=== PATIENT | female | born 1940 | race Caucasian/White ===

== ENCOUNTER 2016-08-17 08:09 | Outpatient (CLI) | payer MEDICARE, BC ==
[~2016-08-17] VITALS: Ht 157.5 cm; Wt 65.0 kg
--- NOTE | ~2016-08-17 | HEMODYNAMI ---
PATIENT:RICHARD NGO MEDICAL RECORD: [id number] : 38 LOCATION:[facility] ADMISSION DATE: 08/17/16 Generatedon:08/17/201612:28 Patient name: RICHARD NGO Patient #: [id number] SSN: : 1940 Date of study: 08/17/2016 Page: Of Hemodynamic Procedure Report Patient Data Patient Demographics Procedure consent was obtained First Name: RICHARD Gender: Female Last Name: HUBER : 1940 Middle Initial: M Age: 75 year(s) Patient #: [id number] Race: Additional ID: [id number] Contact details Address: [address] [place] [address] State: [place] City: [place] Zip code: [address] Past Medical History Performed procedures and imaging results Date Procedure Procedure Results Comments 08/17/2016 No ACC stress or imaging studies were performed Allergies: No known allergies Admission Admission Data Admission Date: 08/17/2016 Admission Time: 8:09 Admit Source: Other Insurance Payor: Medicare, Private health insurance Height (in.): 62 BSA: 1.66 (m2) Height (cm.): 157.48 BMI: 26.15 (kg/m2) Weight (lbs.): 143 Weight (kg.): 64.86 Medications upon Admission Medications Dosage Times Administered Last Remarks per Delivery Day Date and Time Aspirin Yes 08/17/2016 (any) 0:00 Clopidogrel Contraindicated 08/17/2016 0:00 Lab Results Lab Result Date: 08/17/2016 Lab Result Time: 0:00 Biochemistry Name Units Result Min Max Creatinine mg/dl 1 --(--*-)-- 0.6 1.3 CBC Name Units Result Min Max Hemoglobin g/dl 13.6 --(*---)-- 13.5 17.5 Procedure Procedure Types Cath Procedure Diagnostic Procedure LHC LHC w/Coronaries Procedure Description Procedure Date Procedure Date: 08/17/2016 Procedure Start Time: 12:19 Procedure End Time: 12:27 Procedure Staff Name Function Albert Batista MD Performing Physician Yeimi Mullins RT Scrub Heidi Mir RN Nurse Tu Myers RT Monitor Procedure Data Cath Procedure Fluoroscopy Diagnostic fluoroscopy Total fluoroscopy Time: 0.9 time: 0.9 min min Diagnostic fluoroscopy Total fluoroscopy dose: 220 dose: 220 mGy mGy Contrast Material Contrast Material Type Amount (ml) Isovue 300 55 Entry Location Entry Primary Successful Side Size Upsize Upsize Entry Closure Succes sful Closure Location (Fr) 1 (Fr) 2 (Fr) Remarks Device Remarks Femoral Right 5 Fr Vascade artery Closure System Estimated blood loss: 5 ml Diagnostic catheters Device Type Used For End Catheter Placement Cordis 5Fr Pigtail Procedure Catheter (MP) Cordis 5Fr JL 4.0 Procedure Catheter (MP) Cordis 5Fr 3DRC Catheter Procedure (MP) Procedure Complications No complications Procedure Medications Medication Administration Route Dosage Oxygen NC 2 l/min Benadryl I.V. 50 mg Lidocaine 2% added to field 20 Heparin Flush Bag added to field 2 bags (1000units/500ml NS) 0.9% NaCl I.V. 100 ml/hr Versed I.V. 1 mg Fentanyl I.V. 50 mcg Versed I.V. 1 mg Fentanyl I.V. 50 mcg Hemodynamics Rest BSA: 1.66 (m2) HGB: 13.6 (g/dl) O2 Consumption: Estimated: 155.73 (ml/min) O2 Co nsumption indexed: Estimated:93.81 (ml/min/m) Heart Rate: 78 (bpm) Snapshots Pre Cath Intra NCS Post Cath Vital Signs Time Heart Resp SPO2 etCO2 [id number] NIBP (mmHg) Rhythm Pain Sedation Rate (ipm) (%) (mmHg) (mmHg) Status Level (bpm) 12:10:23 79 21 98 0 0 155/90(125) NSR 0 (11) 10(A) , No pain 12:14:39 72 17 98 0 0 149/90(130) NSR 0 (11) 10(A) , No pain 12:18:51 71 16 95 0 0 125/83(120) NSR 0 (11) 9(A) , No pain 12:22:57 71 18 95 0 0 132/84(110) NSR 0 (11) 9(A) , No pain 12:27:05 75 17 95 0 0 133/87(102) NSR 0 (11) 10(A) , No pain Medications Time Medication Route Dose Verified Delivered Reason Notes Effe ctiveness by by 12:13:37 Oxygen NC 2 Albert Buffie used for l/min Lester Mir RN procedure 12:13:45 Benadryl I.V. 50 mg Albert Buffie used for Lester Mir RN procedure 12:13:54 Lidocaine 2% added 20ml Albert Ablert for local to vial Lester Batista MD anesthetic field 12:14:02 Heparin Flush added 2 Albert Albert used for Bag to bags Lester Batista MD procedure (1000units/500ml field NS) 12:14:11 0.9% NaCl I.V. 100 Albert Buffie Per ml/hr Lester Mir RN physician 12:17:00 Versed I.V. 1 mg Albert Buffie for Lester Mir RN sedation 12:17:14 Fentanyl I.V. 50 Albert Buffie for mcg Lester Mir RN sedation 12:22:20 Versed I.V. 1 mg [place] for Lester Mir RN sedation 12:22:23 Fentanyl I.V. 50 Albert Buffie for mcg Lester Mir RN sedation Procedure Log Time Note 11:43:44 Diagnostic Cath Status : Elective 11:44:29 ACC Patient presents with Unstable Angina CCS Anginal Class 3--Marked limitation of physical activity, angina occurs with ordinary activity.. 11:44:32 Time tracking: Regular hours 11:44:37 Plan of Care:Hemodynamics will remain stable., Cardiac rhythm will remain stable., Comfort level will be maintained., Respiratory function will remain adequate., Patient/ family verbilizes understanding of procedure., Procedure tolerated without complication., Recovers from procedure without complications.. 11:44:40 Heidi Mir RN sent for patient. Start room use. 11:45:56 Patient Height : 62 cm 11:45:59 Patient Weight : 143 kg 11:46:22 Admit Source: Other 11:46:27 Insurance Payor : Private health insurance, Medicare 11:48:18 Patient allergic to No known allergies 11:48:53 Lab Result : Hemoglobin 13.6 g/dl 11:48:53 Lab Result : Creatinine 1 mg/dl 11:49:15 ACCPatient has been prescribed/administered the following anti-anginal medication within the last 2 weeks: None 12:05:15 Patient received from Outpatients to CCL 3 Alert and oriented. Tansferred to table in Supine position. 12:05:17 Warm blankets applied, and katarina hugger turned on for patient comfort. 12:05:17 Correct patient and procedure confirmed by team. 12:05:18 Signed procedure consent form obtained from patient. 12:05:19 ECG and BP/O2 sat monitors applied to patient. 12:06:46 H&P Date Dictated: 08/10/2016 Within 30 days and on chart., H&P Addendum completed by physician on day of procedure. (MUST COMPLETE FOR ALL OUTPATIENTS). 12:06:47 Pre-procedure instructions explained to patient. 12:06:48 Pre-op teaching completed and patient verbalized understanding. 12:06:52 Family in waiting room. 12:06:53 Patient NPO since Midnight. 12:06:56 Is the patient allergic to Iodine/contrast media? No. 12:06:58 Is patient on blood thinner?Yes 12:07:01 ACC The patient was administered the following blood thiners within the last 24 hours: ACCPlavix 12:07:04 Patient diabetic? No. 12:07:09 Previous problem with sedation/anesthesia? No ? 12:07:11 Snore? Yes 12:07:12 Sleep apnea? No 12:07:13 Deviated septum? No 12:07:13 Opens mouth fully? Yes 12:07:15 Sticks out tongue? Yes 12:07:19 Airway obstruction? Yes COPD 12:07:27 Dentures? Yes in tight 12:09:18 Vital chart was started 12:13:37 Oxygen 2 l/min NC was given by Heidi Mir RN; used for procedure; 12:13:45 Benadryl 50 mg I.V. was given by Heidi Mir RN; used for procedure; 12:13:54 Lidocaine 2% 20ml vial added to field was given by Albert Batista MD; for local anesthetic; 12:14:02 Heparin Flush Bag (1000units/500ml NS) 2 bags added to field was given by Albert Batista MD; used for procedure; 12:14:07 Baseline sample Acquired. 12:14:11 0.9% NaCl 100 ml/hr I.V. was given by Heidi Mir RN; Per physician; 12:14:12 Rhythm: sinus rhythm 12:14:18 Pre procedure: right dorsailis pedis pulse 1+ Palpable, but thready & weak; easily obliterated 12:14:20 Patient pain scale 0/10 ?. 12:14:44 IV patent on arrival in left forearm with 0.9% NaCl at [facility]. 12:14:49 Lab results completed and on chart. 12:14:53 Right groin area was prepped with chlora-prep and draped in sterile fashion 12:14:54 Alarms reviewed by R. N. 12:14:54 Sharps counted by scrub and verified by R.N. 12:15:03 Use device set Femoral Dx 12:15:04 Tegaderm 4 x 4 opened to sterile field. 12:15:05 Acist Manifold opened to sterile field. 12:15:06 Acist Hand Control opened to sterile field. 12:15:07 Acist Syringe opened to sterile field. 12:15:07 Bag Decanter opened to sterile field. 12:15:08 Cardinal Cath Pack opened to sterile field. 12:15:08 Terumo 5Fr [place] Sheath opened to sterile field. 12:15:09 St Miguel 260cm J .035 wire opened to sterile field. 12:15:09 Cordis Infinity 5Fr Multipack catheter opened to sterile field. 12:15:16 Physician arrived 12:15:16 --------ALL STOP TIME OUT------ 12:15:17 Final Timeout: patient, procedure, and site verified with staff and physician. All members of the team are in agreement. 12:15:18 Right groin site verified by team. 12:15:22 Physical assessment completed. ASA score P 2 - A patient with mild systemic disease as per Albert Batista MD. 12:15:27 Sedation plan: IV Moderate Sedation Versed, Fentanyl 12:17:00 Versed 1 mg I.V. was given by Heidi Mir RN; for sedation; 12:17:14 Fentanyl 50 mcg I.V. was given by Heidi Mir RN; for sedation; 12:19:22 Procedure started. 12:: Full Disclosure recording started 12::27 Local anesthetic to right femoral artery with Lidocaine 2% by Albert Batista MD.INITIAL ACCESS ONLY 12:19:59 Zero performed for pressure channel P1 12:20:02 Zero performed for pressure channel P1 12:20:13 Zero performed for pressure channel P1 12:21:12 A 5 Fr sheath was inserted into the Right Femoral artery 12::33 A Cordis 5Fr Pigtail Catheter (MP) was advanced over the wire and used for Procedure. 12::36 LV gram done using MUSA 12:: Injector settings: Ml/sec: 10, Volume: 20, 12::58 EF : 60 % 12::59 Catheter exchanged over wire. 12:22:04 A Cordis 5Fr JL 4.0 Catheter (MP) was advanced over the wire and used for Procedure. 12:22:20 Versed 1 mg I.V. was given by Heidi Mir RN; for sedation; 12:22:23 Fentanyl 50 mcg I.V. was given by Heidi Mir RN; for sedation; 12::42 LCA angiography performed. 12:24:12 Catheter exchanged over wire. 12:24:17 A Cordis 5Fr 3DRC Catheter (MP) was advanced over the wire and used for Procedure. 12:24:30 RCA angiography performed. 12::38 Vascade 5Fr Closure Device opened to sterile field. 12::42 Catheter removed. 12:24:50 Sheath removed intact; hemostasis achieved with Vascade Closure System to the Right Femoral artery. 12:24:52 Procedure ended.(Physican Out) 12:26:15 Fluoroscopy time 00.90 minutes. 12::18 Fluoroscopy dose: 220 mGy 12::18 Flurop Dose total: 220 12::21 Contrast amount:Isovue 300 55ml. 12:26:23 Sharps counted by scrub and verified by R.N. 12:26:24 Insertion/operative site no bleeding no hematoma. 12:26:28 Post-op/insertion site Right Femoral artery dressed using a 4 x 4 and Tegaderm. 12:26:32 Post right femoral artery:stable, soft, clean and dry 12::33 Post Procedure Pulses reassessed and unchanged 12::36 Post-procedure physical assessment completed. ASA score P 2 - A patient with mild systemic disease as per Albert Batista MD. 12:26:43 Post procedure rhythm: unchanged. 12:26:46 Estimated blood loss: 5 ml 12:26:47 Post procedure instruction explained to patient.Patient verbalizes understanding. 12:26:48 Patient needs reinforcement of post procedure teaching. 12:27:05 Procedure and supply charges have been captured, reviewed, submitted and are correct. 12:27:08 Procedure Complication : No complications 12:27:10 Vital chart was stopped 12:27:11 See physician's report for complete and final results. 12:27:13 Report given to Post Procedure Room. 12:27:16 Patient transfered to Post Procedure Room with Stretcher. 12:27:22 Procedure ended. 12:27:22 Full Disclosure recording stopped 12:27:27 End room use (Document Last) Device Usage Item Name Manufacture Quantity Catalog Number Hospital Part Current Minimal Lot# / Charge Number Stock Stock Serial# Code Tegaderm 1 [id number] 5 4 x 4 Acist Acist 1 53561 460834 722963 101824 5 Manifold Medical Systems Inc Acist Acist 1 01348 456007 009532 718252 5 Hand Medical Control Systems Inc Acist Acist 1 43255 556897 029939 507029 20 Syringe Medical Systems Inc Bag Microtek 1 2002S 381086 46898 271437 5 Decanter Medical Inc. Cardinal Cardinal 1 [id number] 678823 95366 981646 5 Cath Pack Health Terumo Terumo 1 [id number] 310426 291980 [id number] [address] [place] [address] [facility] Miguel 1 [id number] 056753 349632 [id number] 30 260cm J .035 wire Cordis Cardinal 1 [id number] 015254 08326 552137 30 Health Data Vision Health 5Fr Multipack catheter Cordis Cardinal 1 [id number] 5 5Fr Health Pigtail Catheter (MP) Cordis Cardinal 1 [id number] 5 5Fr JL Health 4.0 Catheter (MP) Cordis Cardinal 1 [id number] 5 5Fr [facility] Health Catheter (MP) Vascade Cardiva 1 [id number] 79974 758240 10 5Fr Medical, Closure Inc. Device Signature Audit [place] Stage Time Signature Unsigned Intra-Procedure 08/17/2016 Tu Myers 12:28:50 PM RT(R) Signatures Monitor : Tu Myers RT Signature : Date : Time : [place] [id number] [place] [address]
[~2016-08-17 08:09] MED LIST: ASPIRIN EC81 MG PO; LEVOTHROID75 MCG PO; LISINOPRIL10 MG PO; NEURONTIN 100100 MG; PLAVIX75 MG PO; PRAVACHOL10 MG PO; SINGULAIR10 MG PO; ZOLOFT50 MG PO
[2016-08-17 08:46] LABS: BASOPHILS 0.1 % (0.0-2.0); EOSINOPHILS 3.4 % (0-7); HEMATOCRIT 41.9 % (36.0-48.0); HEMOGLOBIN 13.6 g/dL (12-16); IMMATURE GRANULOCYTES 0.4 % (0-5); LYMPHOCYTES 22.9 % (15-50); MCH 27.5 pg (26.0-34.0); MCHC 32.5 g/dL (31.0-37.0); MCV 84.8 fL (80.0-100.0); MONOCYTES 5.6 % (2-11); NEUTROPHILS 67.6 % (40-80); PLATELET COUNT 254 10x3/uL (130-400); RBC 4.94 10x6/uL (4.00-5.40); WBC 7.2 10x3/uL (4.8-10.8)
[2016-08-17 08:54] LABS: ANION GAP 12.4 mmol/L (8-16); CALCIUM 9.6 mg/dL (8.5-10.1); CARBON DIOXIDE 28.9 mmol/L (21.0-32.0); POTASSIUM - SERUM 4.3 mmol/L (3.5-5.1)
[2016-08-17 09:11] VITALS: BP 117/71; Ht 157.5 cm; Wt 65.0 kg
--- NOTE | 2016-08-17 12:59 | NUR ---
SLEEPING QUIETLY WITH NO DISTRESS NOTED VSS AT HR 69 BP 122/72 NO C/O OF CHEST PAIN 5 FR VASCADE R/GROIN CDI NO BLEEDING NO HEMATOMA NOTED FAMILY AT SIDE
--- NOTE | 2016-08-17 13:34 | NUR ---
CONTINUES TO SLEEP WITH NO DISTRESS NOTED 5 FR VASCADE R/GROIN CDI NO BLEEDING NO HEMATOMA NOTED FAMILY AT SIDE
--- NOTE | 2016-08-17 14:03 | NUR ---
NO C/O OF CHEST PAIN VSS WITH 5 FR VASCADE R/GROIN CDI WILL MONITOR
--- NOTE | 2016-08-17 14:21 | NUR ---
REPOSITIONED TO SITTING WITH HOB UP 45 DEGREES SANDWICH AND SODA TO BEDSIDE CHEST PAIN IS DENIED. 5 DR BLOOM R/GROIN CDI NO BLEEDING NO HEMATOMA NOTED WILL MONITOR
--- NOTE | 2016-08-17 14:33 | NUR ---
PIV REMOVED FROM LEFT ARM WITH DRESSING APPLIED. PATIENT DENIED CHEST PAIN WITH 5 FR VASCADE R/GROIN CDI NO BLEEDING NO HEMATOMA NOTED UP TO GET DRESSED FOR DISCHARGE HOME 1445 DISCHARGE INSTRUCTIONS GONE OVER WITH PATIENT AND DAUGHTER BOTH VERBALIZE UNDERSTANDING. LEFT VIA WC TO [facility]BRYANTIAN FOR DAUGHTER TO DRIVE HOME
--- NOTE | 2016-08-20 16:40 | OP ---
PATIENT NAME: RICHARD NGO MEDICAL RECORD: [id number] :38 LOCATION:[facility] ADMISSION DATE: SURGEON: SULEIMAN CRUZ MD DATE OF OPERATION: 08/17/2016 PROCEDURES: 1. Left heart catheterization. 2. Selective coronary angiography. 3. Left ventriculogram. PROCEDURE IN DETAIL: After informed consent was obtained and after detailed explanation of risks, benefits as well as alternative therapies, the patient elected to proceed with angiogram and heart catheterization. The right femoral area was prepped and draped in normal sterile fashion. The right femoral artery was cannulated via modified Seldinger technique with placement of 5-[place] sheath. All catheters exchanged through this sheath. FINDINGS: Left ventriculogram was performed in standard 30-degree MUSA view, reveals good cardiac wall motion throughout all segments. Overall ejection fraction estimated 60%. SELECTIVE CORONARY ANGIOGRAPHY: 1. Left main showed no significant angiographic disease. 2. Left anterior descending has previously placed stents in the LAD and diagonal. These are widely patent with no significant restenosis. No disease elsewise throughout the LAD and its branches. 3. Left circumflex shows moderate irregularities, but no flow-limiting stenosis. 4. Right coronary artery has moderate irregularities, but no flow-limiting stenosis. OVERALL IMPRESSION: 1. No significant restenosis of the previously placed stents. 2. No disease elsewise. 3. Normal left ventricular function. Symptomatology is noncardiac at this point. TRANSINT:[id number] Voice Confirmation ID: [id number] DOCUMENT ID: [id number] SULEIMAN CRUZ MD at 1640 CC: [id number] DICTATION DATE: 08/17/16 1229 MEDICAL CARE EVALUATION SPECIALIST: 08/17/16 1249 DEP CLI 08/17/16 [place] [id number]
== END 2016-08-17 14:49 | disposition home or self-care (01) ==
LOC: D.CATH 08:09
PROVIDERS: Internal Medicine Interventional Cardiology
DX: I25.119 Atherosclerotic heart disease of native coronary artery with unspecified angina pectoris (principal); R06.02 Shortness of breath; I10 Essential (primary) hypertension; J44.9 Chronic obstructive pulmonary disease, unspecified

== ENCOUNTER 2018-09-07 13:40 | Inpatient (IN) | payer MEDICARE, BC ==
[~2018-09-07] VITALS: Ht 157.5 cm; Wt 64.9 kg
--- NOTE | ~2018-09-07 | HEMODYNAMI ---
PATIENT:RICHARD NGO MEDICAL RECORD: [id number] : 38 LOCATION: [id number] ADMISSION DATE: 09/07/18 Generatedon:09/11/201811:25 Patient name: RICHARD NGO Patient #: [id number] SSN: : 1940 Date of study: 09/11/2018 Page: Of Hemodynamic Procedure Report Patient Data Patient Demographics Procedure consent was obtained First Name: RICHARD Gender: Female Last Name: HUBER : 1940 Middle Initial: M Age: 77 year(s) Patient #: [id number] Race: Additional ID: [id number] Contact details Address: [address] [place] [address] State: [place] City: [place] Zip code: [address] Past Medical History Allergies: No known allergies Admission Admission Data Admission Date: 09/07/2018 Admission Time: 13:40 Admit Source: Other Room #: D.2216 Lab Results Lab Result Date: 09/11/2018 Lab Result Time: 5:45 Biochemistry Name Units Result Min Max BUN mg/dl 24 --(----)-* 7 18 Creatinine mg/dl 0.8 --(-*--)-- 0.6 1.3 CBC Name Units Result Min Max Hematocrit % 38 *-(----)-- 42 54 Hemoglobin g/dl 12.4 *-(----)-- 13.5 17.5 Procedure Procedure Types Cath Procedure Diagnostic Procedure LHC LHC w/Coronaries Procedure Description Procedure Date Procedure Date: 09/11/2018 Procedure Start Time: 11:18 Procedure End Time: 11:23 Procedure Staff Name Function Albert Batista MD Performing Physician Tu Myers RT Monitor Yeimi Mullins RT Scrub José Miguel Graham RN Nurse Antione Marcum RN First Mate Procedure Data Cath Procedure Fluoroscopy Diagnostic fluoroscopy Total fluoroscopy Time: 0.9 time: 0.9 min min Diagnostic fluoroscopy Total fluoroscopy dose: 222 dose: 222 mGy mGy Contrast Material Contrast Material Type Amount (ml) Isovue 300 54 Entry Location Entry Primary Successful Side Size Upsize Upsize Entry Closure Succes sful Closure Location (Fr) 1 (Fr) 2 (Fr) Remarks Device Remarks Femoral Right 5 Fr Exoseal artery Estimated blood loss: 5 ml Diagnostic catheters Device Type Used For End Catheter Placement MULTIPACK Pigtail 5 Fr Procedure catheter MULTIPACK JL 4.0 5Fr Procedure catheter MULTIPACK 3DRC 5Fr Procedure catheter Procedure Complications No complications Procedure Medications Medication Administration Route Dosage 0.9% NaCl I.V. 100 ml/hr Oxygen etCO2 Nasal cannula 2 l/min Heparin Flush Bag added to field 2 bags (1000units/500ml NS) Lidocaine 2% added to field 20 Versed I.V. 1 mg Fentanyl I.V. 50 mcg Versed I.V. 1 mg Fentanyl I.V. 50 mcg Hemodynamics Rest HGB: 12.4 (g/dl) Heart Rate: 93 (bpm) Pressure Samples Time Site Value (mmHg) Purpose Heart Use Rate(bpm) 11:19 LV 103/35,38 Snapshot 102 Snapshots Pre Cath Intra NCS Post Cath Vital Signs Time Heart Resp SPO2 etCO2 NIBP (mmHg) Rhythm Pain Sedation Rate (ipm) (%) (mmHg) Status Level (bpm) 11:00:22 98 14 97 29.8 175/97(137) NSR 0 (11) 10(A) , No pain 11:04:36 98 24 97 27.6 166/96(134) NSR 0 (11) 10(A) , No pain 11:08:50 93 14 94 29 155/92(128) NSR 0 (11) 10(A) , No pain 11:13:04 88 11 92 30.5 147/79(120) NSR 0 (11) 10(A) , No pain 11:17:14 84 12 92 12.6 140/86(122) NSR 0 (11) 9(A) , No pain 11:21:22 83 14 93 0 143/86(119) NSR 0 (11) 9(A) , No pain Medications Time Medication Route Dose Verified Delivered Reason Notes Eff ectiveness by by 11:04:24 0.9% NaCl I.V. 100 José Miguel José Miguel Per ml/hr Gladys Graham physician RN RN 11:04:37 Oxygen etCO2 2 José Miguel José Miguel Per Nasal l/min Lorviolet Lorigan physician cannula RN RN 11:04:48 Heparin Flush added 2 José Miguel José Miguel used for Bag to bags Lorigan Lorigan procedure (1000units/500ml field RN RN NS) 11:04:57 Lidocaine 2% added 20ml José Miguel José Miguel for local to vial Lorigan Lorigan anesthetic field RN RN 11:08:28 Versed I.V. 1 mg José Miguel José Miguel for Lorigan Lorigan sedation RN RN 11:08:38 Fentanyl I.V. 50 José Miguel José Miguel for mcg Lorigan Lorigan sedation RN RN 11:14:38 Versed I.V. 1 mg José Miguel José Miguel for Lorigan Lorigan sedation RN RN 11:14:44 Fentanyl I.V. 50 José Miguel José Miguel for mcg Lorigan Lorigan sedation RN director of assisted living Log Time Note 10:43:40 Informed consent obtained and on chart 10:43:43 Admit Source: Other 10:44:00 Diagnostic Cath status Elective 10:44:01 Antione Marcum RN sent for patient. Start room use. 10:44:01 Time tracking: Regular hours (M-F 7:00 - 5:00) 10:44:05 Plan of Care:Hemodynamics will remain stable., Cardiac rhythm will remain stable., Comfort level will be maintained., Respiratory function will remain adequate., Patient/ family verbilizes understanding of procedure., Procedure tolerated without complication., Recovers from procedure without complications.. 10:44:14 H&P Date Dictated: 09/10/2018 Within 30 days and on chart.. 10:50:31 Lab Result : BUN 24 mg/dl 10:50:31 Lab Result : Hemoglobin 12.4 g/dl 10:50:31 Lab Result : Creatinine 0.8 mg/dl 10:50:31 Lab Result : Hematocrit 38 % 10:50:33 Lab results completed and on chart. 10:54:07 Patient received from Med II to CCL 2 Alert and oriented. Tansferred to table in Supine position. 10:54:17 Warm blankets applied, and katarina hugger turned on for patient comfort. 10:54:18 Correct patient and procedure confirmed by team. 10:54:18 ECG and BP/O2 sat monitors applied to patient. 10:54:19 Pre-procedure instructions explained to patient. 10:54:20 Pre-op teaching completed and patient verbalized understanding. 10:54:21 Family in waiting room. 10:54:22 Patient NPO since Midnight. 10:54:41 Patient allergic to No known allergies 10:59:20 Vital chart was started 11:04:24 0.9% NaCl 100 ml/hr I.V. was administered by José Miguel Graham RN; Per physician; 11:04:37 Oxygen 2 l/min etCO2 Nasal cannula was administered by José Miguel Graham RN; Per physician; 11:04:48 Heparin Flush Bag (1000units/500ml NS) 2 bags added to field was administered by José Miguel Graham RN; used for procedure; 11:04:57 Lidocaine 2% 20ml vial added to field was administered by José Miguel Graham RN; for local anesthetic; 11:05:58 Baseline sample Acquired. 11:06:01 Rhythm: sinus rhythm 11:06:03 Full Disclosure recording started 11:06:05 Is the patient allergic to Iodine/contrast media? No. 11:06:31 Is patient on blood thinner?Yes 11:06:34 ACC The patient was administered the following blood thiners within the last 24 hours: ACCPlavix 11:06:36 Patient diabetic? No. 11:06:39 Previous problem with sedation/anesthesia? No ? 11:06:40 Snore? Yes 11:06:41 Sleep apnea? No 11:06:42 Deviated septum? No 11:06:42 Opens mouth fully? Yes 11:06:43 Sticks out tongue? Yes 11:06:47 Airway obstruction? Yes COPD 11:06:51 Dentures? Yes IN TIGHT 11:06:56 Pre procedure: right dorsailis pedis pulse 2+ Normal; easily identifiable; not easily obliterated 11:06:57 Patient pain scale 0/10 ?. 11:07:03 IV patent on arrival in right forearm with 0.9% NaCl at [facility]. 11:07:06 Right groin area was prepped with chlora-prep and draped in sterile fashion 11:07:07 Alarms reviewed by R. N. 11:07:07 Sharps counted by scrub and verified by R.N. 11:07:09 Use device set Femoral Dx 11:07:10 ACIST Syringe (12881) opened to sterile field. 11:07:11 Bag Decanter (2001S) opened to sterile field. 11:07:11 Medline Cath Pack ([id number]) opened to sterile field. 11:07:12 ACIST Hand Control (21095) opened to sterile field. 11:07:13 ACIST Manifold (34177) opened to sterile field. 11:07:14 Tegaderm 4 x 4 (1626W) opened to sterile field. 11:07:15 SHEATH 5FR [place] (RWF141) opened to sterile field. 11:07:16 DIAGNOSTIC Multipack 5Fr catheter set (HI9403) opened to sterile field. 11:07:17 DIAGNOSTIC WIRE .035 260cm J wire (110834) opened to sterile field. 11::22 Physician arrived 11:: --------ALL STOP TIME OUT------ : Final Timeout: patient, procedure, and site verified with staff and physician. All members of the team are in agreement. 11::24 Right groin site verified by team. 11::26 Fire Safety Assessment: A--An alcohol-based skin anteseptic being used preoperatively., C--Open oxygen or nitrous oxide is being used., D--An ESU, laser, or fiber-optic light is being used. 11::29 Physical assessment completed. ASA score P 2 - A patient with mild systemic disease as per Albert Batista MD. 11:07:31 Sedation plan: IV Moderate Sedation Medication:Versed, Fentanyl 11:08:28 Versed 1 mg I.V. was administered by José Miguel Graham RN; for sedation; :38 Fentanyl 50 mcg I.V. was administered by José Miguel Graham RN; for sedation; 11:11:51 Zero performed for pressure channel P1 11:14:38 Versed 1 mg I.V. was administered by José Miguel Graham RN; for sedation; ::44 Fentanyl 50 mcg I.V. was administered by José Miguel Graham RN; for sedation; :18:18 Procedure started. :22 Local anesthetic to right femoral artery with Lidocaine 2% by Albert Batista MD.INITIAL ACCESS ONLY 11:18:29 A 5 Fr sheath was inserted into the Right Femoral artery 11:18:40 A MULTIPACK Pigtail 5 Fr catheter was advanced over the wire and used for Procedure. 11:18:45 LV gram done using MUSA 11:18:48 Injector settings: Ml/sec: 10, Volume: 20, 11:18:49 LV hemodynamics recorded. 11:18:54 EF : 60 % 11:19:13 Catheter exchanged over wire. 11:19:17 A MULTIPACK JL 4.0 5Fr catheter was advanced over the wire and used for Procedure. 11:19:50 LCA angiography performed. 11:20:32 Catheter exchanged over wire. 11:20:37 A MULTIPACK 3DRC 5Fr catheter was advanced over the wire and used for Procedure. 11:21:25 RCA angiography performed. 11:21:30 Catheter removed. 11:21:31 EXOSEAL 5Fr (EX500) opened to sterile field. 11:21:43 Sheath removed intact; hemostasis achieved with Exoseal to the Right Femoral artery. 11:21:45 Procedure ended.(Physican Out) 11:21:52 Fluoroscopy time 00.90 minutes. 11:21:55 Fluoroscopy dose: 222 mGy 11:21:55 Flurop Dose total: 222 11:21:59 Contrast amount:Isovue 300 54ml. 11:22:04 Sharps counted by scrub and verified by R.N. 11:22:04 Insertion/operative site no bleeding no hematoma. 11:22:07 Post-op/insertion site Right Femoral artery dressed using a 4 x 4 and Tegaderm. 11:22:10 Post right femoral artery:stable, soft, clean and dry 11:22:11 Post Procedure Pulses reassessed and unchanged 11:22:13 Post-procedure physical assessment completed. ASA score P 2 - A patient with mild systemic disease as per Albert Batista MD. 11:22:15 Post procedure rhythm: unchanged. 11:22:17 Estimated blood loss: 5 ml 11:22:18 Post procedure instruction explained to patient.Patient verbalizes understanding. 11:22:19 Patient needs reinforcement of post procedure teaching. 11:23:25 Procedure and supply charges have been captured, reviewed, submitted and are correct. 11:23:27 Procedure Complication : No complications 11:23:28 Vital chart was stopped 11:23:29 See physician's report for complete and final results. 11:23:31 Report given to PCU. 11:23:34 Patient transfered to PCU with Stretcher. 11:23:36 Procedure ended. 11:23:36 Full Disclosure recording stopped 11:23:40 End room use (Document Last) Device Usage Item Name Manufacture Quantity Catalog Hospital Part Current Minimal L ot# / Number Charge Number Stock Stock Serial# Code ACIST Acist 1 50418 422813 739457 206926 20 Syringe Medical (12396) Systems Inc Bag Microtek 1 2001S 270734 33107 992857 5 Decanter Medical Inc. (2001S) Medline Medline 1 [id number] 298336 90387 268723 5 Cath Pack ([id number]) ACIST Hand Acist 1 22094 586034 111281 569824 5 Control Medical (35031) Systems Inc ACIST Acist 1 92538 902051 331671 763143 5 Manifold Medical (83482) Systems Inc Tegaderm 4 3M 1 1626W 745118 866556 108568 5 x 4 (1626W) SHEATH 5FR Terumo 1 LDR342 267741 243969 940501 5 [place] (BPM002) DIAGNOSTIC Cardinal 1 NQ6397 633115 78172 196031 30 Multipack Health 5Fr catheter set (WQ8652) DIAGNOSTIC St Miguel 1 839797 722764 946076 827579 30 WIRE .035 260cm J wire (234318) MULTIPACK Cardinal 1 376796 5 Pigtail 5 Health Fr catheter MULTIPACK Cardinal 1 718777 5 JL 4.0 5Fr Health catheter MULTIPACK Cardinal 1 883615 5 3DRC 5Fr Health catheter EXOSEAL 5Fr Cardinal 1 EX500 395728 028739 999663 10 (EX500) Health Signature Audit [place] Stage Time Signature Unsigned Intra-Procedure 09/11/2018 Tu Myers 11:25:39 AM RT(R) Signatures Monitor : Tu Myers RT Signature : Date : Time : [facility] [address] [place] [address]
[~2018-09-07 13:40] MED LIST changes: +GABAPENTIN100 MG PO; -NEURONTIN 100100 MG
[2018-09-07 14:16] VITALS: BP 120/64; BMI 26.2
[2018-09-07 23:16] VITALS: BP 101/44
[2018-09-08 03:38] VITALS: BP 110/56
[2018-09-08 06:21] LABS: BASOPHILS 0 % (0-2); EOSINOPHILS 0 % (0-7); HEMATOCRIT 40.8 % (36.0-48.0); HEMOGLOBIN 13.1 g/dL (12-16); IMMATURE GRANULOCYTES 0.5 % (0-5); LYMPHOCYTES 15.7 % (15-50); MCH 27.6 pg (26.0-34.0); MCHC 32.1 g/dL (31.0-37.0); MCV 86.1 fL (80.0-100.0); MEAN PLATELET VOLUME 10.2 fL (7.4-10.4); MONOCYTES 3.2 % (2-11); NEUTROPHILS 80.6 % (40-80); PLATELET COUNT 209 10x3/uL (130-400); RBC 4.74 10x6/uL (4.00-5.40); RDW 14.8 % (11.5-14.5); WBC 4.4 10x3/uL (4.8-10.8)
[2018-09-08 08:52] LABS: ALBUMIN 3.4 g/dL (3.4-5.0); ANION GAP 16.4 mmol/L (8-16); BILIRUBIN - TOTAL 0.36 mg/dL (0.2-1.3); CALCIUM 8.8 mg/dL (8.5-10.1); CARBON DIOXIDE 22.3 mmol/L (21.0-32.0); POTASSIUM - SERUM 4.7 mmol/L (3.5-5.1); PROTEIN - SERUM 7.6 g/dL (6.4-8.2)
[2018-09-08 09:07] VITALS: BP 143/73
[2018-09-08 12:18] VITALS: Ht 157.5 cm; Wt 64.9 kg
[2018-09-08 13:53] VITALS: BP 126/84
[2018-09-08 16:00] VITALS: BP 133/81
[2018-09-08 19:34] VITALS: BP 156/83
[2018-09-08 23:35] VITALS: BP 133/72
[2018-09-09 04:00] VITALS: BP 132/74
[2018-09-09 06:25] LABS: BASOPHILS 0.1 % (0-2); EOSINOPHILS 0 % (0-7); HEMATOCRIT 42.4 % (36.0-48.0); HEMOGLOBIN 13.6 g/dL (12-16); IMMATURE GRANULOCYTES 0.7 % (0-5); LYMPHOCYTES 8.3 % (15-50); MCH 27.6 pg (26.0-34.0); MCHC 32.1 g/dL (31.0-37.0); MEAN PLATELET VOLUME 10.2 fL (7.4-10.4); MONOCYTES 4.8 % (2-11); NEUTROPHILS 86.1 % (40-80); PLATELET COUNT 247 10x3/uL (130-400); RBC 4.93 10x6/uL (4.00-5.40); RDW 14.9 % (11.5-14.5)
[2018-09-09 06:31] LABS: WBC 14.5 10x3/uL (4.8-10.8)
[2018-09-09 07:06] LABS: ALBUMIN 3.2 g/dL (3.4-5.0); ANION GAP 22.1 mmol/L (8-16); BILIRUBIN - TOTAL 0.25 mg/dL (0.2-1.3); CALCIUM 8.8 mg/dL (8.5-10.1); CARBON DIOXIDE 17.6 mmol/L (21.0-32.0); CREATININE - SERUM 1.1 mg/dL (0.6-1.3); POTASSIUM - SERUM 4.7 mmol/L (3.5-5.1); PROTEIN - SERUM 7.2 g/dL (6.4-8.2)
[2018-09-09 08:39] VITALS: BP 112/64
[2018-09-09 12:00] VITALS: BP 137/76
[2018-09-09] MEDS ORDERED: BROVANA15 MCG/2 M INH (15:36)
[2018-09-09] MEDS ORDERED: PULMICORT0.5 MG/21 INH (15:39)
[2018-09-09 16:00] VITALS: BP 154/82
[2018-09-09 16:18] LABS: CKMB 4.6 U/L (0.0-3.6); CREATINE KINASE 71 UL (21-215)
[2018-09-09 16:20] LABS: TROPONIN-I < 0.017 ng/mL (0.000-0.060)
[2018-09-09 20:00] VITALS: BP 140/84
[2018-09-09 22:04] LABS: CKMB 4.9 U/L (0.0-3.6); CREATINE KINASE 74 UL (21-215)
[2018-09-09 22:05] LABS: TROPONIN-I < 0.017 ng/mL (0.000-0.060)
[2018-09-10] VITALS: BP 121/69
[2018-09-10 02:59] LABS: BASOPHILS 0.1 % (0-2); EOSINOPHILS 0 % (0-7); HEMATOCRIT 37.6 % (36.0-48.0); IMMATURE GRANULOCYTES 1.3 % (0-5); MCH 27.3 pg (26.0-34.0); MCHC 31.9 g/dL (31.0-37.0); MCV 85.6 fL (80.0-100.0); MEAN PLATELET VOLUME 9.7 fL (7.4-10.4); MONOCYTES 7.4 % (2-11); NEUTROPHILS 77.2 % (40-80); PLATELET COUNT 223 10x3/uL (130-400); RBC 4.39 10x6/uL (4.00-5.40); RDW 14.8 % (11.5-14.5); WBC 12.1 10x3/uL (4.8-10.8)
[2018-09-10 03:24] LABS: ALBUMIN 2.9 g/dL (3.4-5.0); ALKALINE PHOSPHATASE 55 U/L (46-116); ALT (SGPT) 22 U/L (10-68); BILIRUBIN - TOTAL 0.32 mg/dL (0.2-1.3); CALC OSMOLALITY 290 mosm/kg (275-300); CALCIUM 8.6 mg/dL (8.5-10.1); CHLORIDE - SERUM 107 mmol/L (98-107); CREATINE KINASE 55 UL (21-215); CREATININE - SERUM 0.9 mg/dL (0.6-1.3); GLUCOSE 132 mg/dL (74-106); PROTEIN - SERUM 6.3 g/dL (6.4-8.2); SODIUM 142 mmol/L (136-145); UREA NITROGEN 30 mg/dL (7-18); eGFR NON AFRICAN AMERICAN 64 mL/min (90-120)
[2018-09-10 03:34] LABS: CARBON DIOXIDE 23.1 mmol/L (21.0-32.0); TROPONIN-I < 0.017 ng/mL (0.000-0.060)
[2018-09-10 04:00] VITALS: BP 121/61
[2018-09-10 07:55] VITALS: BP 158/84
[2018-09-10 13:00] VITALS: BP 136/77
[2018-09-10 16:00] VITALS: BP 163/82
[2018-09-10 20:00] VITALS: BP 175/83
[2018-09-11] VITALS: BP 157/800
[2018-09-11 04:00] VITALS: BP 168/90
[2018-09-11 05:15] LABS: BILIRUBIN - TOTAL 0.46 mg/dL (0.2-1.3); CALCIUM 8.8 mg/dL (8.5-10.1); CARBON DIOXIDE 22.3 mmol/L (21.0-32.0); CREATININE - SERUM 0.8 mg/dL (0.6-1.3); PROTEIN - SERUM 6.4 g/dL (6.4-8.2)
[2018-09-11 05:19] LABS: ANION GAP 18.4 mmol/L (8-16); POTASSIUM - SERUM 5.7 mmol/L (3.5-5.1)
[2018-09-11 07:17] LABS: BASOPHILS 0.2 % (0-2); EOSINOPHILS 0 % (0-7); HEMOGLOBIN 12.4 g/dL (12-16); IMMATURE GRANULOCYTES 5.1 % (0-5); LYMPHOCYTES 9.5 % (15-50); MCH 27.2 pg (26.0-34.0); MCHC 32.6 g/dL (31.0-37.0); MEAN PLATELET VOLUME 10.1 fL (7.4-10.4); MONOCYTES 4.9 % (2-11); NEUTROPHILS 80.3 % (40-80); RBC 4.56 10x6/uL (4.00-5.40); RDW 14.6 % (11.5-14.5); WBC 10.8 10x3/uL (4.8-10.8)
[2018-09-11 07:20] LABS: MCV 83.3 fL (80.0-100.0); PLATELET COUNT 290 10x3/uL (130-400)
[2018-09-11 08:03] VITALS: BP 171/89
--- NOTE | 2018-09-11 11:21 | MORECARE ---
CASE MANAGEMENT DISCHARGE SUMMARY PATIENT: RICHARD NGO UNIT: [id number] ADM DATE: 09/07/18 AGE: 77 : 39 SEX: F ROOM/BED: D.2216 AUTHOR: FRANKIE CIFUENTES PHYSICIAN: REFERRING PHYSICIAN: VINNIE IRENE MD DATE OF SERVICE: 09/11/18 Discharge Plan Patient Name: RICHARD NGO [facility] [facility] 1940 Planned Disposition: Anticipated Discharge Date: Discharge Date: Expected LOS: Initial Reviewer: [email or web address] Initial Review Date: 09/07/2018 Generated: 09/11/18 12:20 pm Comments DCP- Discharge Planning Updated by [email or web address]: Jaycee Epps on 09/11/18 10:[address] CM went to see patient for DC planning, patient was in a procedure. CM will attempt to see patient when they return to their room. CM to follow and assist with DC planning Patient Name: RICHARD NGO Page [phone] at 1121 All edits/amendments must be made on the electronic document DICTATION DATE: 09/11/181119 MEDICAL ASSISTANT SECRETARY: LESIA 09/11/181119 RPT#: [id number] DC DATE: STATUS: ADM IN [facility] [address] [place] [address] END OF REPORT
[2018-09-11 15:36] VITALS: BP 128/67
[2018-09-11 21:11] VITALS: BP 169/90
[2018-09-12 02:25] VITALS: BP 150/87
[2018-09-12 05:32] LABS: BASOPHILS 0.4 % (0-2); EOSINOPHILS 0 % (0-7); HEMATOCRIT 38.2 % (36.0-48.0); HEMOGLOBIN 12.3 g/dL (12-16); IMMATURE GRANULOCYTES 6.5 % (0-5); LYMPHOCYTES 9.4 % (15-50); MCHC 32.2 g/dL (31.0-37.0); MONOCYTES 7.3 % (2-11); NEUTROPHILS 76.4 % (40-80); PLATELET COUNT 284 10x3/uL (130-400); RBC 4.55 10x6/uL (4.00-5.40); RDW 14.6 % (11.5-14.5); WBC 12.3 10x3/uL (4.8-10.8)
[2018-09-12 06:00] LABS: BILIRUBIN - TOTAL 0.37 mg/dL (0.2-1.3); CALCIUM 8.4 mg/dL (8.5-10.1); CARBON DIOXIDE 24.6 mmol/L (21.0-32.0); PROTEIN - SERUM 6.5 g/dL (6.4-8.2)
[2018-09-12 06:05] LABS: ANION GAP 15.8 mmol/L (8-16); POTASSIUM - SERUM 4.4 mmol/L (3.5-5.1)
[2018-09-12 06:24] VITALS: BP 139/76
[2018-09-12 07:27] VITALS: BP 148/82
--- NOTE | 2018-09-12 10:45 | EC ---
PATIENT:RICHARD NGO DATE OF SERVICE: 09/07/18 SEX: F MEDICAL RECORD: [id number] DATE OF : 38 LOCATION:D.M2 D.212 AGE OF PATIENT: 77 ADMISSION DATE: 09/07/18 REFERRING PHYSICIAN: INTERPRETING PHYSICIAN: SULEIMAN BATISTA MD ECHOCARDIOGRAM REPORT ECHO CHARGES 4 ECHO COMPLETE Date: 09/09/18 CLINICAL DIAGNOSIS: NERI HX OF CAD/STENTS ECHOCARDIOGRAPHIC MEASUREMENTS (adult normal given) AC root (d.<3.7cm) 3.7 cm LV Septum d (<1.2 cm> 1.8 cm Valve Excursion 1.7 cm LV Septum (systole) 2.0 cm Left Atria (s.<4.0cm> 3.5 cm LVPW d(<1.2cm) 1.7 cm RV (d.<2.3cm) 2.9 cm LVPW (sytole) 1.8 cm LV diastole(<5.6CM) 3.3 cm MV E-F(>70mm/sec) cm LV systole 2.3 cm LVOT Diameter 1.8 cm MV exc.(>10mm) 1.4 cm Est.ejection fraction (50-75%) % DOPPLER: LVIT cm/sec A 85.0 cm/sec E 74.0 cm/sec LA cm/sec RVSP 25 mmHg LVOT 114 cm/sec AOP1/2T m/s Asc. Ao 167 cm/sec RVOT 77 cm/sec RA cm/sec PA 121 cm/sec AV Gradient Peak 11.18mmHg AV Mean 5.91 mmHg AV Area 2.0 cm MV Gradient Peak 4.45 mmHg MV Mean 1.98 mmHg MV Area cm COMMENTS: Hot Patcher: 2 MELE CAGE [employer] Staff: 1 Dr. Batista TAPE# PACS Pericardial Effusion N DATE OF SERVICE: FINDINGS: 1. Left ventricular chamber size is within normal limits. Left ventricular systolic function is normal. Overall ejection fraction is estimated at 60%. 2. Left atrium, right atrium, and right ventricle chamber sizes are within normal limit. 3. Valvular structures have normal structure and motion. 4. Doppler interrogation reveals trace tricuspid regurgitation. No other valvular insufficiency or stenosis. ECHOCARDIOGRAM REPORT [id number] RICHARD NGO 5. No evidence of pericardial effusion or left ventricular thrombus. TRANSINT:[id number] Voice Confirmation ID: [id number] DOCUMENT ID: [id number] SULEIMAN BATISTA MD at 1045 CC: [id number] DICTATION DATE: 09/10/18 1022 STATISTICS PROFESSOR: 09/10/18 1222 ADM IN [place] [id number] [place] [address]
--- NOTE | 2018-09-12 10:45 | CN ---
PATIENT NAME:RICHARD AVALOS MEDICAL RECORD: [id number] : 38 LOCATION:D. D.2123 ADMIT DATE: 09/07/18 ACCOUNT: [id number] CONSULTING PHYSICIAN: SULEIMAN CRUZ MD REFERRING PHYSICIAN: VINNIE IRENE MD DATE OF CONSULTATION: 09/10/2018 CARDIOLOGY CONSULTATION DATE OF CONSULTATION: 09/10/2018 ADMITTING DIAGNOSES: 1. Chest pain compatible with angina. 2. Coronary artery disease. 3. Previous multivessel percutaneous transluminal coronary angioplasty stent. 4. Chronic obstructive pulmonary disease. 5. Bronchitis. 6. Shortness of breath, dyspnea on exertion. 7. Hypertension. HISTORY OF PRESENT ILLNESS: Mrs. Avalos presents with shortness of breath, dyspnea on exertion and chest discomfort. She has been having shortness of breath and dyspnea on exertion for the past week. This then turned into episodes of chest pain and chest pressure just like that of her previous angina. She does have a history of coronary artery disease, previous cardiac stent, the last has been at least 2 years ago. Her troponin is normal. She has continued to have episodes of chest discomfort this morning. REVIEW OF SYSTEMS: The patient reports easy bruising but reports no swollen glands. The patient reports no fever, no night sweats, no significant weight gain, no significant weight loss. No significant exercise tolerance. The patient reports no dry eyes, no irritation, no vision change. Patient reports no difficulty hearing and no ear pain. Patient reports no frequent nose bleeds or nose and sinus problems. Patient reports on arm pain on exertion. No shortness of breath while lying down. No history of heart murmur. Patient reports no cough, no wheezing or coughing up blood. Patient reports no abdominal pain, no vomiting. Normal appetite. No diarrhea and not vomiting blood. No nausea and no constipation. Patient reports no incontinence. No difficulty urinating. No hematuria. No increased frequency. Patient reports no muscle aches. No weakness, no arthralgias, no back pain. No swelling of the extremities. Patient reports no abnormal mole, no jaundice, no rashes. Reports no loss of consciousness. No weakness and no numbness. No seizures, dizziness, or headaches. The patient reports no depression, no sleep disturbance, feeling safe in a relationship and no alcohol abuse. Patient reports on fatigue. Reports no runny nose or sinus pressure. No itching, no hives, and no frequent sneezing. PHYSICAL EXAMINATION: GENERAL APPEARANCE: Well-nourished, well-developed, appears stated age. Level of distress, comfortable. PSYCHIATRIC: Mental status, alert, normal affect. Orientation, oriented to time, place and person. EYES: Lids and conjunctiva, noninjected. No discharge, no pallor. ENT: Lips, teeth, gums, normal dentition. Oropharynx, no cyanosis, no pallor. NECK: Carotid arteries, bilateral normal upstroke, no bruits, no thrills. CONSULT REPORT [id number] RICHARD AVALOS JUGULAR VEINS: No jugular venous pressure or distention. CERVICAL LYMPH NODES: Nontender, nonenlarged. THYROID: Not enlarged. Nontender. No nodules. LUNGS: Respiratory effort, unlabored. CHEST: Normal curvature. No thoracic deformity. No chest wall tenderness. Percussion, resonant. Auscultation, clear. No wheezes, no rales, no rhonchi. CARDIOVASCULAR: Precordial exam, nondisplaced. No heaves or pericardial thrills. Rate and rhythm, regular. Heart sounds, normal S1, normal S2. No S3, no gallop, no rub. Systolic murmur, not heard. Diastolic murmur, not heard. EXTREMITIES: No cyanosis, no edema. Peripheral pulses, full and equal in all extremities, except as noted. No bruits appreciated. ABDOMEN: Soft, nondistended. Normal aorta. No bruit. Nontender. No masses. Liver, nontender, no hepatomegaly. Spleen, nontender, no splenomegaly. MUSCULOSKELETAL: No joint tenderness. No joint swelling. No erythema. NEUROLOGICAL: Normal gait, normal strength, normal tone. SKIN: Warm and dry. OVERALL IMPRESSION: Chest pain compatible with angina in a progressive fashion along with shortness of breath. The shortness of breath is most likely chronic obstructive pulmonary disease and bronchitis, but there very well may be a cardiac component as well, especially with the angina. We will proceed with coronary angiography in the a.m. Further care depends upon the findings of the angiography. TRANSINT:[id number] Voice Confirmation ID: [id number] DOCUMENT ID: [id number] SULEIMAN CRUZ MD at 1045 CC: [id number] DICTATION DATE: 09/10/18 1119 EMERGENCY VETERINARIAN: 09/10/18 1224 ADM IN [facility] [address] [place] [id number]
--- NOTE | 2018-09-12 10:45 | OP ---
PATIENT NAME: RICHARD NGO MEDICAL RECORD: [id number] :38 LOCATION:D.M2 D.2123 ADMISSION DATE:09/07/18 SURGEON: SULEIMAN CRUZ MD DATE OF OPERATION: 09/11/2018 PROCEDURES: 1. Left heart catheterization. 2. Selective coronary angiography. 3. Left ventriculogram. INDICATION: Angina and coronary artery disease. PROCEDURE IN DETAIL: After informed consent was obtained and after a detailed description of risks, benefits as well as alternative therapies, the patient elected to proceed with angiogram and heart catheterization. The right femoral area was prepped and draped in normal sterile fashion. Right femoral artery was cannulated via modified Seldinger technique with placement of 5-Kosovan sheath. All catheters exchanged through this sheath. FINDINGS: The left ventriculogram was performed in standard 30-degree MUSA view, reveals good cardiac wall motion throughout all segments. Overall ejection fraction estimated at 60%. SELECTIVE CORONARY ANGIOGRAPHY: 1. Left main has no significant angiographic disease. 2. Left anterior descending has previously placed stents in the LAD and diagonal. These are widely patent with no significant restenosis. No disease elsewise throughout the LAD or its branches. 3. The left circumflex has mild irregularities, but no flow-limiting stenosis. 4. Right coronary has mild irregularities, but no flow-limiting stenosis. OVERALL IMPRESSION: Wide patency of the previously placed stents, no disease elsewise. Continue medical management of the coronary artery disease and cardiac risk factors. TRANSINT:[id number] Voice Confirmation ID: [id number] DOCUMENT ID: [id number] SULEIMAN CRUZ MD at 1045 CC: [id number] DICTATION DATE: 09/11/18 1126 GYROSCOPIC INSTRUMENT MECHANIC: 09/11/18 1227 [place] [address]
[2018-09-12 12:11] VITALS: BP 157/86
[2018-09-12] MEDS ORDERED: LISINOPRIL10 MG PO (13:03)
[2018-09-12] MEDS ORDERED: MIRALAX17 GM PO (13:04)
[2018-09-12] MEDS ORDERED: PREDNISONE20 MG PO (13:07)
[2018-09-12 15:52] VITALS: BP 174/93
--- NOTE | 2018-09-12 16:25 | MORECARE ---
CASE MANAGEMENT DISCHARGE SUMMARY PATIENT: RICHARD NGO UNIT: [id number] ADM DATE: 09/07/18 AGE: 77 : 39 SEX: F ROOM/BED: D.6344 AUTHOR: FRANKIE CIFUENTES PHYSICIAN: REFERRING PHYSICIAN: VINNIE IRENE MD DATE OF SERVICE: 09/12/18 Discharge Plan Patient Name: RICHARD NGO [facility] [facility] 1940 Planned Disposition: Anticipated Discharge Date: Discharge Date: Expected LOS: Initial Reviewer: [email or web address] Initial Review Date: 09/07/2018 Generated: 09/12/18 5:25 pm Comments DCP- Discharge Planning Updated by [email or web address]: Jaycee Epps on 09/11/18 10:[address] CM went to see patient for DC planning, patient was in a procedure. CM will attempt to see patient when they return to their room. CM to follow and assist with DC planning External Providers External Provider: [facility] Next Contact Date: 09/12/2018 Service Request Date: Service Type: Resolution: Reviewer: Comments: Last DP export: 09/11/18 10:21 a Patient Name: RICHARD NGO Page [phone] at 1629 All edits/amendments must be made on the electronic document DICTATION DATE: 09/12/18 162 APPLICATION PERFORMANCE ENGINEER: LESIA 09/12/18 1625 RPT#: [id number] DC DATE: STATUS: ADM IN [place] [address] [place] [address] END OF REPORT
--- NOTE | 2018-09-12 16:59 | MORECARE ---
CASE MANAGEMENT DISCHARGE SUMMARY PATIENT: RICHARD NGO UNIT: [id number] ADM DATE: 09/07/18 AGE: 77 : 39 SEX: F ROOM/BED: D.2145 AUTHOR: ESAU,DOC PHYSICIAN: REFERRING PHYSICIAN: VINNIE IRENE MD DATE OF SERVICE: 09/12/18 Discharge Plan Patient Name: RICHARD NGO Facility: [facility]:[place] : 1940 Planned Disposition: Home with Home Health Anticipated Discharge Date: 09/12/18 Discharge Date: 09/12/2018 Expected LOS: 5 Initial Reviewer: [id number] Initial Review Date: 09/07/2018 Generated: 09/12/18 5:58 pm Comments DCP- Discharge Planning Updated by [email or web address]: Jaycee Epps on 09/11/18 10:[address] CM went to see patient for DC planning, patient was in a procedure. CM will attempt to see patient when they return to their room. CM to follow and assist with DC planning DCPIA - Discharge Planning Initial Assessment Updated by [id number]: Chris Villalba on 09/12/18 4:55 pm * Is the patient Alert and Oriented? Yes * How many steps to enter\exit or inside your home? NONE * PCP DR. IRENE * Pharmacy [facility] * Preadmission Environment Home Alone * ADLs Independent * Equipment None * Other Equipment NO MEDICAL EQUIPMENT PROVIDER PREFERENCE * List name and contact numbers for known caregivers / representatives who currently or will assist patient after discharge: THOMAS NGO, DTR, * Verbal permission to speak to the caregivers and representatives has been obtained from the patient. Yes * Community resources currently utilized None * Please name any agencies selected above. NONE * Additional services required to return to the preadmission environment? No * Can the patient safely return to the preadmission environment? Yes * Has this patient been hospitalized within the prior 30 days at any hospital? No Coverage Notice Reviewer: [id number] Mohamud Villalba Notice Issued Date-Time: 09/12/2018 15:55 Notice Type: Patient Choice Letter Notice Delivered To: Patient Relationship to Patient: Business Center Attendant Name: Delivery Method: HAND - Hand Delivered Nakia Days: Prior Verbal Notification: Recipient Understood Notice: Yes Recipient Signature: Yes Med Rec Note Co-signed by Attending: Coverage Notice Comment: [facility] Reviewer: [id number] - Chris Orly Notice Issued Date-Time: 09/12/2018 15:55 Notice Type: IM Discharge Notice Notice Delivered To: Patient Relationship to Patient: Business Center Attendant Name: Delivery Method: HAND - Hand Delivered Nakia Days: Prior Verbal Notification: Recipient Understood Notice: Yes Recipient Signature: Yes Med Rec Note Co-signed by Attending: Coverage Notice Comment: Last DP export: 09/12/18 3:25 p Patient Name: RICHARD NGO Page [phone] at 1659 All edits/amendments must be made on the electronic document DICTATION DATE: 09/12/181657 REHAB DEPARTMENT MANAGER: LESIA 09/12/181657 RPT#: [id number] DC DATE:09/12/18 STATUS: DIS IN [facility] [address] [place] [address] END OF REPORT
--- NOTE | 2018-09-12 17:11 | MORECARE ---
CASE MANAGEMENT DISCHARGE SUMMARY PATIENT: RICHARD NGO UNIT: [id number] ADM DATE: 09/07/18 AGE: 77 : 39 SEX: F ROOM/BED: D.9139 AUTHOR: ESAU,DOC PHYSICIAN: REFERRING PHYSICIAN: VINNIE IRENE MD DATE OF SERVICE: 09/12/18 Discharge Plan Patient Name: RICHARD NGO Facility: [facility]:[place] : 1940 Planned Disposition: Home with Home Health Anticipated Discharge Date: 09/12/18 Discharge Date: 09/12/2018 Expected LOS: 5 Initial Reviewer: [email or web address] Initial Review Date: 09/07/2018 Generated: 09/12/18 6:10 pm Comments DCP- Discharge Planning Updated by [id number]: Chrsi Villalba on 09/12/18 4:[address] Patient Name: RICHARD NGO Admission Status: Elective Accout number: [id number] Admission Date: 09-07-2018 : 1940 Admission Diagnosis:SHORTNESS OF BREATH Attending: VINNIE IRENE Current LOS: 5 Anticipated DC Date: 09-12-2018 Planned Disposition: Home with Home Health Primary Insurance: MEDICARE A & B PLANNED EXTERNAL PROVIDER: [facility] Discharge Planning Comments: CM RECEIVED DISCHARGE AND HOME HEALTH ORDER, MET WITH PT AND DAUGHTER IN ROOM TO DISCUSS DISCHARGE PLANNING AND NEEDS. RICHARD NGO provided verbal consent to discuss current and ongoing needs with/in the presence of: DAUGHTERTHOMAS. PT REPORTS LIVING AT HOME INDEPENDENTLY AND ALONE. PT HAS NO MEDICAL EQUIPMENT AND NO OUTSIDE SERVICES ASSISTING IN THE HOME. CM DISCUSSED AVAILABILITY OF HOME HEALTH, REHAB SERVICES AND MEDICAL EQUIPMENT. PT WILL ACCEPT HOME HEALTH, UNDERSTANDS HOMEBOUND STATUS. CHOICE LISTING PROVIDED, PT REQUESTED [facility] HER USED THEM IN THE PAST WITH GOOD RESULT. CHOICE SIGNED. PT REPORTS HER DAUGHTER IS HERE TO PICK HER UP FOR DISCHARGE HOME. IMPORTANT MESSAGE FROM MEDICARE PROVIDED AND EXPLAINED. CM CALLED [facility], , SPOKE TO ERIC WHO TOOK REFERRAL INFORMATION AND WILL PLACE PT BACK ON SCHEDULE FOR ADMIT TO HOME HEALTH CARE. CM FAXED DISCHARGE INFORMATION TO [facility] AT [phone]. PT AND DAUGHTER NOTIFIED, DENIES FURTHER NEEDS. CM NOTIFIED PLASMA TABLE OPERATOR NURSE. Sales And Service Agent: Chris Villalba DCP- Discharge Planning Updated by [id number]: Jaycee Epps on 09/11/18 10:[address] CM went to see patient for DC planning, patient was in a procedure. CM will attempt to see patient when they return to their room. CM to follow and assist with DC planning DCPIA - Discharge Planning Initial Assessment Updated by [id number]: Chris Villalba on 09/12/18 4:55 pm * Is the patient Alert and Oriented? Yes * How many steps to enter\exit or inside your home? NONE * PCP DR. IRENE * Pharmacy [facility] * Preadmission Environment Home Alone * ADLs Independent * Equipment None * Other Equipment NO MEDICAL EQUIPMENT PROVIDER PREFERENCE * List name and contact numbers for known caregivers / representatives who currently or will assist patient after discharge: THOMASASIA NGO DTDanika, * Verbal permission to speak to the caregivers and representatives has been obtained from the patient. Yes * Community resources currently utilized None * Please name any agencies selected above. NONE * Additional services required to return to the preadmission environment? No * Can the patient safely return to the preadmission environment? Yes * Has this patient been hospitalized within the prior 30 days at any hospital? No Coverage Notice Reviewer: [id number] Mohamud Villalba Notice Issued Date-Time: 09/12/2018 15:55 Notice Type: Patient Choice Letter Notice Delivered To: Patient Relationship to Patient: Liner Roll Changer Name: Delivery Method: HAND - Hand Delivered Nakia Days: Prior Verbal Notification: Recipient Understood Notice: Yes Recipient Signature: Yes Med Rec Note Co-signed by Attending: Coverage Notice Comment: [facility] Reviewer: [id number] Mohamud Villalba Notice Issued Date-Time: 09/12/2018 15:55 Notice Type: IM Discharge Notice Notice Delivered To: Patient Relationship to Patient: Liner Roll Changer Name: Delivery Method: HAND - Hand Delivered Nakia Days: Prior Verbal Notification: Recipient Understood Notice: Yes Recipient Signature: Yes Med Rec Note Co-signed by Attending: Coverage Notice Comment: Last DP export: 09/12/18 3:59 p Patient Name: RICHARD NGO Page [id number] at 1711 All edits/amendments must be made on the electronic document DICTATION DATE: 09/12/181709 EXECUTIVE CREATIVE DIRECTOR: LESIA 09/12/181709 RPT#: [id number] DC DATE:09/12/18 STATUS: DIS IN [facility] [address] [place] [address] END OF REPORT
== END 2018-09-12 16:57 | disposition home health service (06) | DRG 192 ==
LOC: D.MS 13:40 → D.M2 09-11 11:36
PROVIDERS: Internal Medicine Interventional Cardiology; ADMIT Family Medicine
PROC: B2151ZZ Fluoroscopy of Left Heart using Low Osmolar Contrast (ICD-10-PCS; 2018-09-11)
PROC: 4A023N7 Measurement of Cardiac Sampling and Pressure, Left Heart, Percutaneous Approach (ICD-10-PCS; 2018-09-11)
PROC: B2111ZZ Fluoroscopy of Multiple Coronary Arteries using Low Osmolar Contrast (ICD-10-PCS; principal; 2018-09-11 10:44)
DX: J44.1 Chronic obstructive pulmonary disease with (acute) exacerbation (principal); I10 Essential (primary) hypertension; K21.9 Gastro-esophageal reflux disease without esophagitis; F32.9 Major depressive disorder, single episode, unspecified; I25.119 Atherosclerotic heart disease of native coronary artery with unspecified angina pectoris; K59.00 Constipation, unspecified; J40 Bronchitis, not specified as acute or chronic; Z86.73 Personal history of transient ischemic attack (TIA), and cerebral infarction without residual deficits

== ENCOUNTER → 2018-12-06 10:58 | Outpatient (CLI) | payer MEDICARE, BC ==
[2018-09-08 12:18] VITALS: BMI 26.1
[~2018-12-06 10:58] MED LIST changes: +BROVANA15 MCG/2 M INH; +MIRALAX17 GM PO; +PREDNISONE20 MG PO; +PULMICORT0.5 MG/21 INH
== END | disposition home or self-care (01) ==
LOC: D.RT 10:58
PROVIDERS: ATTEND Nurse Practitioner Acute Care
DX: J44.9 Chronic obstructive pulmonary disease, unspecified (principal)

== ENCOUNTER 2019-08-17 08:58 | Inpatient (IN) | payer MEDICARE, BC ==
[~2019-08-17] VITALS: Ht 157.5 cm; Wt 65.3 kg
[2019-08-17 09:24] LABS: BASOPHILS 0.1 % (0-2); EOSINOPHILS 0.5 % (0-7); HEMATOCRIT 40.6 % (36.0-48.0); HEMOGLOBIN 12.8 g/dL (12-16); IMMATURE GRANULOCYTES 0.2 % (0-5); LYMPHOCYTES 7.3 % (15-50); MCH 26.7 pg (26.0-34.0); MCHC 31.5 g/dL (31.0-37.0); MCV 84.8 fL (80.0-100.0); MEAN PLATELET VOLUME 9.6 fL (7.4-10.4); MONOCYTES 4.5 % (2-11); NEUTROPHILS 87.4 % (40-80); RBC 4.79 10x6/uL (4.00-5.40); RDW 14.8 % (11.5-14.5); WBC 8.2 10x3/uL (4.8-10.8)
[2019-08-17 09:27] LABS: PLATELET COUNT 205 10x3/uL (130-400)
[2019-08-17 09:34] LABS: CALC OSMOLALITY 288 mosm/kg (275-300); CALCIUM 8.6 mg/dL (8.5-10.1); CARBON DIOXIDE 29.6 mmol/L (21.0-32.0); CHLORIDE - SERUM 106 mmol/L (98-107); CREATININE - SERUM 1.1 mg/dL (0.6-1.3); GLUCOSE 118 mg/dL (74-106); POTASSIUM - SERUM 4.1 mmol/L (3.5-5.1); SODIUM 144 mmol/L (136-145); UREA NITROGEN 15 mg/dL (7-18); eGFR NON AFRICAN AMERICAN 51 mL/min (90-120)
[2019-08-17 09:35] LABS: APTT 28.5 SECONDS (22.8-39.4); INR 1.02 (0.85-1.17); PROTIME 13.3 SECONDS (11.6-15.0)
[2019-08-17 09:49] LABS: ALBUMIN 3.5 g/dL (3.4-5.0); ALKALINE PHOSPHATASE 74 U/L (46-116); ALT (SGPT) 22 U/L (10-68); BILIRUBIN - TOTAL 0.41 mg/dL (0.2-1.3); CKMB 1.3 U/L (0.0-3.6); CREATINE KINASE 62 UL (21-215); PRO BNP 660 pg/mL (0-450); TROPONIN-I 0.057 ng/mL (0.000-0.060)
--- NOTE | 2019-08-17 12:17 | NUR ---
PT STATES SHE IS FEELING SOB AGAIN, RESP. TX ORDERED, RT IN ROOM.
[2019-08-17 13:29] VITALS: BP 134/74
[2019-08-17] MEDS ORDERED: OMEPRAZOLE20 M1 PO (14:12)
[2019-08-17] MEDS ORDERED: FUROSEMIDE20 MG PO (14:13)
[2019-08-17] MEDS ORDERED: MAG-OXIDE400 MG PO (14:14)
[2019-08-17] MEDS ORDERED: IPRAT-ALBUT 0.5-3 ML UPD (14:22)
[2019-08-17 16:48] VITALS: BP 134/74; BMI 26.4
[2019-08-17 20:00] VITALS: BP 134/68
--- NOTE | 2019-08-17 20:06 | NUR ---
I have reviewed this patient and I concur with the Shift Assessment completed by the Licensed Practical Nurse today this shift.
[2019-08-18] VITALS: BP 145/72
--- NOTE | 2019-08-18 03:02 | NUR ---
PT SITTING UP IN BED TALKING ON PHONE. NO SIGNS OR SYMPTOMS OF DISTRESS NOTED. RESPIRATIONS EVEN AND UNLABORED. PT IS ALERT AND ORIENTED x4. DAUGHTER IN LAW IS AT BED SIDE. CONTINENT OF BOWELL AND BLADDER. PT AMBULATES TO RESTROOM WITH ASSIST. BOWELL SOUNDS ACTIVE x4. ABDOMEN IS FLAT AND SOFT TO PALPATION. GAIT IS STEADY. FISH SALTER ARE STRONG AND EQUAL BILATERLLY. PT COMPLAINS THAT CHEST IS HURTING FROM COUGHING SO MUCH. AND STATES THAT SHE HAS A HEADACHE. PRN PAIN MED TYLENOL GIVEN FOR 6/10. DURING REASSEMENT PT STATES THAT SHE FEEL BETTER AND NOW PAIN LEVEL IS A 2/10. PT ENCOURAGED TO CALL FOR HELP WHEN GETTING IN AND OUT OF BED. CALL LIGHT WITHIN REACH AND BED IS IN LOWEST POSITION . WILL CONTINUE TO MONITOR PT ENCOURAGED TO CALL FOR HELP WHEN GETTING IN AND OUT OF BED. BED IS IN LOWEST
[2019-08-18 04:00] VITALS: BP 124/64
[2019-08-18 06:07] LABS: BASOPHILS 0.2 % (0-2); EOSINOPHILS 0 % (0-7); HEMATOCRIT 40.4 % (36.0-48.0); LYMPHOCYTES 10.2 % (15-50); MCHC 32.2 g/dL (31.0-37.0); MCV 83.8 fL (80.0-100.0); MEAN PLATELET VOLUME 9.7 fL (7.4-10.4); MONOCYTES 3.7 % (2-11); NEUTROPHILS 84.9 % (40-80); PLATELET COUNT 219 10x3/uL (130-400); RBC 4.82 10x6/uL (4.00-5.40); RDW 14.8 % (11.5-14.5); WBC 6.3 10x3/uL (4.8-10.8)
[2019-08-18 06:27] LABS: ANION GAP 14.5 mmol/L (8-16); CARBON DIOXIDE 25.9 mmol/L (21.0-32.0); POTASSIUM - SERUM 4.4 mmol/L (3.5-5.1)
--- NOTE | 2019-08-18 07:08 | NUR ---
I have reviewed this patient and I concur with the Shift Assessment completed by the Licensed Practical Nurse today this shift.
--- NOTE | 2019-08-18 07:34 | NUR ---
PT RESTING IN BED, DAUGHTER IN LAW AT BEDSIDE. NO COMPLAINTS OR CONCERNS, PT WOKE EASILY TO NOISE STIMULATION. ALL QUESTIONS ANSWERED TO THE BEST OF MY ABILITY. CL INREACH, SRX2.
[2019-08-18 08:53] VITALS: BP 134/69
[2019-08-18 09:28] VITALS: BMI 26.3
[2019-08-18 12:09] VITALS: BP 124/65
--- NOTE | 2019-08-18 15:02 | NUR ---
I have reviewed this patient and I concur with the Shift Assessment completed by the Licensed Practical Nurse today this shift.
[2019-08-18 16:52] VITALS: BP 131/76
--- NOTE | 2019-08-18 17:19 | NUR ---
PT AWAKE AND ORIENTED, NO COMPLAINTS OR CONCERNS. I/V LEAKING. TOO REPLACE. CL IN REACH, SRX2.
[2019-08-18 20:00] VITALS: BP 135/68
--- NOTE | 2019-08-18 20:15 | NUR ---
RECEIVED UP IN BED WITH EYES CLOSED. NO S/S OF DISTRESS OBSERVED. AROUSES WITH VERBAL STIMULI. O2 AT 2.5 LITERS PER N/C. IV TO RIGHT FA SL.. EDUCATED ON U/A. VERBAL UNDERSTANDING GIVEN. DENIES ANY NEEDS AT THIS TIME.
[2019-08-18 22:42] LABS: APPEARANCE CLEAR (CLEAR); COLOR YELLOW (YELLOW); SPECIFIC GRAVITY 1.015 (1.005-1.020)
[2019-08-18 22:43] LABS: BILIRUBIN NEGATIVE (NEGATIVE); GLUCOSE 250 mg/dL (NEGATIVE); KETONE NEGATIVE (NEGATIVE); NITRITE NEGATIVE (NEGATIVE); PROTEIN NEGATIVE (NEGATIVE); UROBILINOGEN NORMAL (NORMAL)
[2019-08-19] VITALS (7 sets, daily range): BP systolic 133–173; BP diastolic 68–99
[2019-08-19 06:54] LABS: BASOPHILS 0.1 % (0-2); EOSINOPHILS 0 % (0-7); HEMATOCRIT 38.6 % (36.0-48.0); HEMOGLOBIN 12.1 g/dL (12-16); IMMATURE GRANULOCYTES 0.7 % (0-5); LYMPHOCYTES 5.4 % (15-50); MCH 26.4 pg (26.0-34.0); MCHC 31.3 g/dL (31.0-37.0); MCV 84.3 fL (80.0-100.0); MEAN PLATELET VOLUME 9.4 fL (7.4-10.4); MONOCYTES 3.8 % (2-11); PLATELET COUNT 255 10x3/uL (130-400); RBC 4.58 10x6/uL (4.00-5.40)
[2019-08-19 07:08] LABS: WBC 13.6 10x3/uL (4.8-10.8)
[2019-08-19 07:18] LABS: ANION GAP 11.9 mmol/L (8-16); CALCIUM 8.8 mg/dL (8.5-10.1); CARBON DIOXIDE 27.6 mmol/L (21.0-32.0); POTASSIUM - SERUM 4.5 mmol/L (3.5-5.1)
--- NOTE | 2019-08-19 09:55 | NUR ---
I have reviewed this patient and I concur with the Shift Assessment completed by the Licensed Practical Nurse today this shift.
--- NOTE | 2019-08-19 17:13 | NUR ---
PT AWAKE AND ORIENTED, NO COMPLAINTS OR CONCERN S AT THIS TME. EATING SUPPER UNASSISTED AT SIDE OF BED. NO FAMILY PRESENT AT THIS TIME. CL SEA,SRX2.
--- NOTE | 2019-08-19 19:24 | NUR ---
RECEIVED SITTING UP ON SIDE OF BED. NO FAMILY AT BEDSIDE. ALERT AND ORIENTED X4. REQUIRES ASSIST TO TRANSFER AND AMBULATE TO B/R. O2@ 2.5 LITERS PER N/C. RESP EVEN AND UNLABORES AT THIS TIME. IV TO RIGHT FA SL.. DENIES ANY NEEDS AT THIS TIME.
[2019-08-20 04:39] VITALS: BP 162/88
[2019-08-20 05:29] LABS: BASOPHILS 0.2 % (0-2); EOSINOPHILS 0.1 % (0-7); HEMATOCRIT 38.3 % (36.0-48.0); IMMATURE GRANULOCYTES 2.4 % (0-5); LYMPHOCYTES 7.2 % (15-50); MCH 26.5 pg (26.0-34.0); MCHC 31.3 g/dL (31.0-37.0); MCV 84.7 fL (80.0-100.0); MEAN PLATELET VOLUME 9.4 fL (7.4-10.4); MONOCYTES 5.2 % (2-11); NEUTROPHILS 84.9 % (40-80); PLATELET COUNT 277 10x3/uL (130-400); RBC 4.52 10x6/uL (4.00-5.40); RDW 14.8 % (11.5-14.5); WBC 11.5 10x3/uL (4.8-10.8)
[2019-08-20 05:39] LABS: ANION GAP 10.9 mmol/L (8-16); CALCIUM 9.1 mg/dL (8.5-10.1); CARBON DIOXIDE 30.5 mmol/L (21.0-32.0); CREATININE - SERUM 1.1 mg/dL (0.6-1.3); POTASSIUM - SERUM 4.4 mmol/L (3.5-5.1)
--- NOTE | 2019-08-20 07:30 | NUR ---
PT SITTING UP ON SIDE OF BED. DENIES ANY PAIN OR DISCOMFORT AND NO REQUESTS VOICED. ASSESSMENT COMPLETED AND WILL CONTINUE POC. BED IN LOW POSITION AND CALL LIGHT IN REACH.
[2019-08-20 08:43] VITALS: BP 164/86
[2019-08-20 12:29] VITALS: BP 179/89
--- NOTE | 2019-08-20 15:54 | NUR ---
I have reviewed this patient and I concur with the Shift Assessment completed by the Licensed Practical Nurse today this shift.
--- NOTE | 2019-08-20 15:55 | NUR ---
I have reviewed this patient and I concur with the Shift Assessment completed by the Licensed Practical Nurse today this shift.
[2019-08-20 17:35] VITALS: BP 179/92
[2019-08-20 20:00] VITALS: BP 179/94
--- NOTE | 2019-08-20 20:04 | NUR ---
RECEIVED SITTING UP ON SIDE OF BED. ALERT AND ORIENTED X4. UP WITH ASSIST TO B/R. IV TO RIGHT FA SL.. INFORMED OF NEW ORDER FOR FSBS AC AND HS. GAVE VERBAL UNDERSTANDING. DENIES ANY NEEDS AT THIS TIME.
[2019-08-21 04:00] VITALS: BP 144/78
[2019-08-21 06:44] LABS: ANION GAP 12.6 mmol/L (8-16); CALCIUM 9.2 mg/dL (8.5-10.1); CARBON DIOXIDE 31.1 mmol/L (21.0-32.0); POTASSIUM - SERUM 4.7 mmol/L (3.5-5.1)
[2019-08-21 06:50] LABS: BASOPHILS 0.3 % (0-2); EOSINOPHILS 0 % (0-7); HEMATOCRIT 38.3 % (36.0-48.0); HEMOGLOBIN 12.3 g/dL (12-16); IMMATURE GRANULOCYTES 5.8 % (0-5); LYMPHOCYTES 8.6 % (15-50); MCH 26.7 pg (26.0-34.0); MCHC 32.1 g/dL (31.0-37.0); MCV 83.3 fL (80.0-100.0); MEAN PLATELET VOLUME 9.5 fL (7.4-10.4); MONOCYTES 7.3 % (2-11); PLATELET COUNT 299 10x3/uL (130-400); RDW 14.6 % (11.5-14.5); WBC 12.7 10x3/uL (4.8-10.8)
--- NOTE | 2019-08-21 08:41 | NUR ---
BEDSIDE SHIFT REPORT COMPLETED. PATIENT IS SITTING UP IN BED EATTING BREAKFAST. HER BLOOD PRESSURE IS HIGH THIS MORNING. MORNING MEDICATIONS GIVEN ORDERED AND ARMIDA FARMER CALLED. SHE HAS NOT CALLED BACK YET, MAURY JUST PAGED HER AGAIN. WAITING TO HEAR BACK. PATIENTS DAUGHTER HAS CALLED CONCERNED ABOUT THE BLOOD PRESSURE WELL. CONTINUEING TO MONITOR CLOSELY.
[2019-08-21 10:01] VITALS: BP 176/110
[2019-08-21 13:04] VITALS: BP 156/83
--- NOTE | 2019-08-21 13:49 | NUR ---
REMOVED INFILTRATED IV FROM RIGHT FROEARM CATHETER INTACT.
--- NOTE | 2019-08-21 13:50 | NUR ---
22G PIV PLACED IN LEFT FOREARM 2 STICKS. PATIENT TOLERATED. IV INFUSING. ANTIBIOTIC WAS PAUSED AND NOW IS INFUSING WELL. PATIENT REPORTS TO DR THAT SHE IS NOT FEELING ANY BETTER, AND GETS SO OUT OF BREATH. WATCHING ORDERS .
--- NOTE | 2019-08-21 14:26 | NUR ---
Nutrition Follow-up: Reports that she is "just not hungry". Denies N/V/C/D. Drinking Ensure. Diet: Cardiac PO intake: 65% avg x 10 meals Wt: 144# (08/18) Last BM: 08/21 Labs noted: Glu 178 Meds noted: Humulin, Miralax, Solumedrol -Encourage PO intake. -May consider appetite stimulant. -Monitor wt. -RD following.
[2019-08-21 16:13] LABS: CKMB 8.2 U/L (0.0-3.6); CREATINE KINASE 96 UL (21-215); TROPONIN-I < 0.017 ng/mL (0.000-0.060)
[2019-08-21 16:26] VITALS: BP 173/94
[2019-08-21 20:00] VITALS: BP 162/86
[2019-08-21 20:34] LABS: CKMB 4.7 U/L (0.0-3.6); CREATINE KINASE 100 UL (21-215); TROPONIN-I 0.024 ng/mL (0.000-0.060)
[2019-08-22] VITALS: BP 143/83
[2019-08-22 03:21] LABS: HEMATOCRIT 40.8 % (36.0-48.0); HEMOGLOBIN 13.3 g/dL (12-16); MCH 26.8 pg (26.0-34.0); MCHC 32.6 g/dL (31.0-37.0); MCV 82.1 fL (80.0-100.0); MEAN PLATELET VOLUME 9.5 fL (7.4-10.4); RBC 4.97 10x6/uL (4.00-5.40); RDW 14.7 % (11.5-14.5)
[2019-08-22 03:23] LABS: PLATELET COUNT 366 10x3/uL (130-400); WBC 16.1 10x3/uL (4.8-10.8)
[2019-08-22 03:37] LABS: CALC OSMOLALITY 286 mosm/kg (275-300); CALCIUM 9.2 mg/dL (8.5-10.1); CARBON DIOXIDE 31.9 mmol/L (21.0-32.0); CHLORIDE - SERUM 103 mmol/L (98-107); CKMB 7.8 U/L (0.0-3.6); CREATINE KINASE 91 UL (21-215); CREATININE - SERUM 0.9 mg/dL (0.6-1.3); GLUCOSE 161 mg/dL (74-106); POTASSIUM - SERUM 4.4 mmol/L (3.5-5.1); SODIUM 139 mmol/L (136-145); TROPONIN-I < 0.017 ng/mL (0.000-0.060); UREA NITROGEN 30 mg/dL (7-18); eGFR NON AFRICAN AMERICAN 64 mL/min (90-120)
[2019-08-22 03:46] LABS: LYMPHOCYTES 22 % (15-50); MONOCYTES 4 % (2-11); NEUTROPHILS 70 % (40-80); PLATELET ESTIMATE NORMAL
[2019-08-22 04:00] VITALS: BP 166/89
--- NOTE | 2019-08-22 05:59 | NUR ---
PT C/O OF ANXIETY. STATES IT IS MILD-MODERATE. STATES IT IS MAKING HER VERY UNCOMFORTABLE AND SHE FEELS LIKE SHE IS NOT RESTING ENOUGH DUE TO ANXIETY. PAGED ON-CALLRANDALL. AWAITING CALLBACK AT THIS TIME.
--- NOTE | 2019-08-22 08:23 | NUR ---
RECIEVED REPORT. PATIENT IS REPORTING SOME ANXIETY. SHE HAS HAD BREATHING TREATMENTS THIS MORNING. SHE IS SITTING UP AT THE EDGE OF HER BED THIS MORNING. REPORTS THAT SHE IS STILL FEELING BAD. SAYS THAT HER DAUGHTER LIVES OUT OF TOWN AND THERE IS SNOW ON THE GROUND THERE. SHE IS VERY HARD OF HEARING. HER CHEEKS ARE FLUSHED. DENIES ANY PAIN AT THIS TIME.
[2019-08-22 09:18] VITALS: BP 142/92
--- NOTE | 2019-08-22 10:21 | NUR ---
CALLED FRANCES ABOUT ANXIETY. HE ADJUSTED HER MEDICATIONS.
--- NOTE | 2019-08-22 11:15 | NUR ---
GAVE PRN MED FOR ELEVATED B/P ORDERED. STARTING ANTIANXIETY MEDICINE.
--- NOTE | 2019-08-22 11:18 | NUR ---
IV IN LEFT WRIST IS DISLODGING.
--- NOTE | 2019-08-22 12:05 | NUR ---
IV REMOVED FROM LEFT WRIST CATH INTACT. 20 G START IN RIGHT AC.
[2019-08-22 12:12] VITALS: BP 190/105
[2019-08-22 13:11] VITALS: Ht 157.5 cm; Wt 65.3 kg
--- NOTE | 2019-08-22 15:19 | NUR ---
PATIENT GOT UP AND WALKED AROUND WITH THE NURSE. SHE IS FEELING A LITTLE BETTER.
--- NOTE | 2019-08-22 16:04 | MORECARE ---
CASE MANAGEMENT DISCHARGE SUMMARY PATIENT: RICHARD NGO UNIT: [id number] ADM DATE: 08/17/19 AGE: 78 : 39 SEX: F ROOM/BED: D.5038 AUTHOR: ESAU,DOC PHYSICIAN: REFERRING PHYSICIAN: VINNIE IRENE MD DATE OF SERVICE: 08/22/19 Discharge Plan Patient Name: RICHARD NGO Facility: [facility]:[place] : 1940 Planned Disposition: Home with Home Health Anticipated Discharge Date: 08/23/19 Discharge Date: Expected LOS: 6 Initial Reviewer: [id number] Initial Review Date: 08/17/2019 Generated: 08/22/19 5:04 pm Comments DCP- Discharge Planning Updated by [email or web address]: Chris Villalba on 08/22/19 3:[address] Patient Name: RICHARD NGO Admission Status: ER Accout number: [id number] Admission Date: 08-17-2019 : 1940 Admission Diagnosis: Attending: VINNIE IRENE Current LOS: 5 Anticipated DC Date: 08-23-2019 Planned Disposition: Home with Home Health Primary Insurance: MEDICARE A & B PLANNED EXTERNAL PROVIDER: [facility] Discharge Planning Comments: CM MET WITH PT IN ROOM TO DISCUSS DISCHARGE PLANNING AND NEEDS. PT REPORTS LIVING AT HOME INDEPENDENTLY AND ALONE. PT HAS NO MEDICAL EQUIPMENT AND NO OUTSIDE SERVICES ASSISTING IN THE HOME. CM DISCUSSED AVAILABILITY OF HOME HEALTH, REHAB SERVICES AND MEDICAL EQUIPMENT. PT WOULD LIKE HOME HEALTH FOR DISCHARGE HOME. CM OFFERED PROVIDER LISTING, PT STATES SHE WANTS [facility] SHE RECEIVED [facility] CARE THE LAST TIME. CHOICE SIGNED. PT REPORTS HER DAUGHTER WILL PICK HER UP FOR DISCHARGE HOME. IMPORTANT MESSAGE FROM MEDICARE PROVIDED AND EXPLAINED. CM TO ARRANGE HOME HEALTH FOR DISCHARGE HOME WITH PHYSICIAN ORDER AND AGREEMENT. CM TO FOLLOW AND ASSIST NEEDED. Field Marketing Coordinator: Chris Villalba DCPIA - Discharge Planning Initial Assessment Updated by [id number]: Chris Villalba on 08/22/19 4:00 pm * Is the patient Alert and Oriented? Yes * How many steps to enter\exit or inside your home? NONE * PCP DR. IRENE * Pharmacy [facility] * Preadmission Environment Home Alone * ADLs Independent * Equipment None * Other Equipment NO MEDICAL EQUIPMENT PROVIDER PREFERENCE * List name and contact numbers for known caregivers / representatives who currently or will assist patient after discharge: THOMAS NGO, DTR, * Verbal permission to speak to the caregivers and representatives has been obtained from the patient. N/A * Community resources currently utilized None * Please name any agencies selected above. NONE * Additional services required to return to the preadmission environment? Yes * Can the patient safely return to the preadmission environment? Yes * Has this patient been hospitalized within the prior 30 days at any hospital? No Coverage Notice Reviewer: KAVON Villalba Notice Issued Date-Time: 08/22/2019 15:25 Notice Type: IM Discharge Notice Notice Delivered To: Patient Relationship to Patient: Patient Accounting Representative Name: Delivery Method: HAND - Hand Delivered Nakia Days: Prior Verbal Notification: Recipient Understood Notice: Yes Recipient Signature: Yes Med Rec Note Co-signed by Attending: Coverage Notice Comment: Reviewer: KAVON Villalba Notice Issued Date-Time: 08/22/2019 15:25 Notice Type: Patient Choice Letter Notice Delivered To: Patient Relationship to Patient: Patient Accounting Representative Name: Delivery Method: HAND - Hand Delivered Nakia Days: Prior Verbal Notification: Recipient Understood Notice: Yes Recipient Signature: Yes Med Rec Note Co-signed by Attending: Coverage Notice Comment: [facility] Patient Name: RICHARD NGO Page [phone] at 1604 All edits/amendments must be made on the electronic document DICTATION DATE: 08/22/19 160 DIRECTOR CRAFT CENTER: LESIA 08/22/19 1604 RPT#: [id number] DC DATE: STATUS: ADM IN [facility] [address] [place] [address] END OF REPORT
[2019-08-22 16:19] VITALS: BP 137/84
--- NOTE | 2019-08-22 17:43 | NUR ---
PATIENT IS SITTING UP IN A CHAIR AND DENIES ANY NEEDS AT THIS TIME.
[2019-08-22 20:30] VITALS: BP 125/71
--- NOTE | 2019-08-23 00:08 | NUR ---
SITTING ON SIDE OF BED GETTING BREATHING TREATMENT. ALERT AND ORIENTED x4. NO SIGNS OR SYMPTOMS OF DISTRESS NOTED. RESPIRATIONS EVEN AND UNLBORED. PRN XANAX GIVEN FOR ANXIETY. NO COMPLAINTS OF PAIN AT THIS TIME. PT WANTS TO SIT UP IN CHAIR TO REST. PT IS 76 SIN[address] RYTHUM, PAC'S ON TELEMETRY. UP WITH ASSIST. P ENCOURAGED TO CALL FOR HELP WHEN GETTING IN AND OUT OF BED. CALL LIGHT IS WITHIN REACH AND BED IS IN LOWEST POSITION. CHAIR IS LOCKED. WILL CONTINUE TO MONITOR.
--- NOTE | 2019-08-23 04:11 | NUR ---
I have reviewed this patient and I concur with the Shift Assessment completed by the Licensed Practical Nurse today this shift.
[2019-08-23 04:30] VITALS: BP 129/78
--- NOTE | 2019-08-23 06:17 | NUR ---
PT WHEELED OFF FLOOR FOR X-RAY VIA WHEELCHAIR.
[2019-08-23 07:46] VITALS: BP 146/75
--- NOTE | 2019-08-23 08:02 | NUR ---
SITTING ON SIDE OF BED IN NO ACUTE DISTRESS. 02 @ 2L/NC. IN NO ACUTE DISTRESS. PLAN FOR DAY REVIEWED. A&O X4. STATES NO NEEDS.
[2019-08-23 11:45] VITALS: BP 130/78
--- NOTE | 2019-08-23 14:23 | NUR ---
Nutrition Follow-up: Appetite improving. Reports eating >50% of breakfast this AM. Drinking Ensure. Denies N/V/C/D. Diet: Cardiac, Ensure TID Wt: 144# (08/18) Last BM: 08/23 Labs reviewed Meds noted: Prednisone, Humulin, Miralax -Continue current diet/supplement as needed. -Need new wt. -RD following.
[2019-08-23 15:38] VITALS: BP 114/72
--- NOTE | 2019-08-23 19:29 | NUR ---
UP IN CHAIR IN ROOM WITH TELEVISION ON, ABLE TO VOICE ALL NEEDS. DENIES ANY DISTRESS AT THIS TIME. WILL NOTE ANY CHANGE.
[2019-08-23 20:30] VITALS: BP 111/68
--- NOTE | 2019-08-23 22:43 | NUR ---
IV NOTED TO BE NO LONGER PATENT, DC'D. ATTEMPTED TO RESITE TIMES TWO WITHOUT SUCCESS, WILL NOTE ANY CHANGE.
[2019-08-24 01:00] VITALS: BP 104/57
--- NOTE | 2019-08-24 03:24 | NUR ---
I have reviewed this patient and I concur with the Shift Assessment completed by the Licensed Practical Nurse today this shift.
[2019-08-24 06:25] LABS: HEMATOCRIT 40.6 % (36.0-48.0); MCH 26.5 pg (26.0-34.0); MCV 82.9 fL (80.0-100.0); MEAN PLATELET VOLUME 10.2 fL (7.4-10.4); RDW 15.2 % (11.5-14.5); WBC 15.1 10x3/uL (4.8-10.8)
[2019-08-24 06:26] LABS: PLATELET COUNT 207 10x3/uL (130-400)
[2019-08-24 07:40] LABS: LYMPHOCYTES 11 % (15-50); MONOCYTES 8 % (2-11); NEUTROPHILS 79 % (40-80); PLATELET ESTIMATE NORMAL
[2019-08-24 08:00] VITALS: BP 139/76
[2019-08-24 09:02] LABS: ANION GAP 11.8 mmol/L (8-16); CALCIUM 8.6 mg/dL (8.5-10.1); CARBON DIOXIDE 30.9 mmol/L (21.0-32.0); CREATININE - SERUM 0.9 mg/dL (0.6-1.3); POTASSIUM - SERUM 4.7 mmol/L (3.5-5.1)
[2019-08-24 12:00] VITALS: BP 128/63
[2019-08-24] MEDS ORDERED: PREDNISONE20 MG PO (13:10)
[2019-08-24] MEDS ORDERED: ZOLOFT100 MG PO (13:11)
[2019-08-24] MEDS ORDERED: CATAPRES0.1 MG PO (13:12)
[2019-08-24] MEDS ORDERED: Tessalon Perle PO (13:13)
--- NOTE | 2019-08-24 13:17 | NUR ---
PT WALKED ON RA AROUND UNIT 1 ENVIRONMENTAL AID STARTING: SPo2 98% HR 124 FINISHING: SPo2 91% HR 131
--- NOTE | 2019-08-24 14:46 | MORECARE ---
CASE MANAGEMENT DISCHARGE SUMMARY PATIENT: RICHARD NGO UNIT: [id number] ADM DATE: 08/17/19 AGE: 78 : 39 SEX: F ROOM/BED: D.5030 AUTHOR: ESAU,DOC PHYSICIAN: REFERRING PHYSICIAN: VINNIE IRENE MD DATE OF SERVICE: 08/24/19 Discharge Plan Patient Name: RICHARD NGO Facility: [facility]:[place] : 1940 Planned Disposition: Home with Home Health Anticipated Discharge Date: 08/23/19 Discharge Date: Expected LOS: 6 Initial Reviewer: [id number] Initial Review Date: 08/17/2019 Generated: 08/24/19 3:46 pm Comments DCP- Discharge Planning Updated by [id number]: Chris Villalba on 08/22/19 3:[address] Patient Name: RICHARD NGO Admission Status: ER Accout number: [id number] Admission Date: 08-17-2019 : 1940 Admission Diagnosis: Attending: VINNIE IRENE Current LOS: 5 Anticipated DC Date: 08-23-2019 Planned Disposition: Home with Home Health Primary Insurance: MEDICARE A & B PLANNED EXTERNAL PROVIDER: [facility] Discharge Planning Comments: CM MET WITH PT IN ROOM TO DISCUSS DISCHARGE PLANNING AND NEEDS. PT REPORTS LIVING AT HOME INDEPENDENTLY AND ALONE. PT HAS NO MEDICAL EQUIPMENT AND NO OUTSIDE SERVICES ASSISTING IN THE HOME. CM DISCUSSED AVAILABILITY OF HOME HEALTH, REHAB SERVICES AND MEDICAL EQUIPMENT. PT WOULD LIKE HOME HEALTH FOR DISCHARGE HOME. CM OFFERED PROVIDER LISTING, PT STATES SHE WANTS [facility] SHE RECEIVED GOOD CARE THE LAST TIME. CHOICE SIGNED. PT REPORTS HER DAUGHTER WILL PICK HER UP FOR DISCHARGE HOME. IMPORTANT MESSAGE FROM MEDICARE PROVIDED AND EXPLAINED. CM TO ARRANGE HOME HEALTH FOR DISCHARGE HOME WITH PHYSICIAN ORDER AND AGREEMENT. CM TO FOLLOW AND ASSIST NEEDED. Application Release Manager: Chris Villalba DCPIA - Discharge Planning Initial Assessment Updated by [id number]: Chris Villalba on 08/22/19 4:00 pm * Is the patient Alert and Oriented? Yes * How many steps to enter\exit or inside your home? NONE * PCP DR. IRENE * Pharmacy [facility] * Preadmission Environment Home Alone * ADLs Independent * Equipment None * Other Equipment NO MEDICAL EQUIPMENT PROVIDER PREFERENCE * List name and contact numbers for known caregivers / representatives who currently or will assist patient after discharge: THOMAS NGO, DTR, * Verbal permission to speak to the caregivers and representatives has been obtained from the patient. N/A * Community resources currently utilized None * Please name any agencies selected above. NONE * Additional services required to return to the preadmission environment? Yes * Can the patient safely return to the preadmission environment? Yes * Has this patient been hospitalized within the prior 30 days at any hospital? No External Providers External Provider: Rona Next Contact Date: 08/24/2019 Service Request Date: Service Type: Resolution: Reviewer: Comments: External Provider: [facility] Next Contact Date: 08/24/2019 Service Request Date: Service Type: Resolution: Reviewer: Comments: Coverage Notice Reviewer: KAVON Villalba Notice Issued Date-Time: 08/22/2019 15:25 Notice Type: IM Discharge Notice Notice Delivered To: Patient Relationship to Patient: Ladderman Name: Delivery Method: HAND - Hand Delivered Nakia Days: Prior Verbal Notification: Recipient Understood Notice: Yes Recipient Signature: Yes Med Rec Note Co-signed by Attending: Coverage Notice Comment: Reviewer: KAVON Villalba Notice Issued Date-Time: 08/22/2019 15:25 Notice Type: Patient Choice Letter Notice Delivered To: Patient Relationship to Patient: Ladderman Name: Delivery Method: HAND - Hand Delivered Nakia Days: Prior Verbal Notification: Recipient Understood Notice: Yes Recipient Signature: Yes Med Rec Note Co-signed by Attending: Coverage Notice Comment: [facility] Reviewer: KAVON Villalba Notice Issued Date-Time: 08/24/2019 14:25 Notice Type: Patient Choice Letter Notice Delivered To: Patient Relationship to Patient: Ladderman Name: Delivery Method: HAND - Hand Delivered Nakia Days: Prior Verbal Notification: Recipient Understood Notice: Yes Recipient Signature: Yes Med Rec Note Co-signed by Attending: Coverage Notice Comment: Last DP export: 08/22/19 3:04 p Patient Name: RICHARD NGO Page [phone] at 1446 All edits/amendments must be made on the electronic document DICTATION DATE: 08/24/19 1446 BOX OFFICE CLERK: LESIA 08/24/19 1446 RPT#: [id number] DC DATE: STATUS: ADM IN [facility] [address] [place] [address] END OF REPORT
--- NOTE | 2019-08-24 14:55 | MORECARE ---
CASE MANAGEMENT DISCHARGE SUMMARY PATIENT: RICHARD NGO UNIT: [id number] ADM DATE: 08/17/19 AGE: 78 : 38 SEX: F ROOM/BED: D.2140 AUTHOR: ESAU,DOC PHYSICIAN: REFERRING PHYSICIAN: VINNIE IRENE MD DATE OF SERVICE: 08/24/19 Discharge Plan Patient Name: RICHARD NGO Facility: [facility]:[place] : 1940 Planned Disposition: Home with Home Health Anticipated Discharge Date: 08/23/19 Discharge Date: Expected LOS: 6 Initial Reviewer: [id number] Initial Review Date: 08/17/2019 Generated: 08/24/19 3:54 pm Comments DCP- Discharge Planning Updated by [id number]: Chris Villalba on 08/24/19 1:[address] Patient Name: RICHARD NGO Encounter No: [id number] : 1940 Primary Insurance: MEDICARE A & B Anticipated DC Date: 08-23-2019 Planned Disposition: Home with Home Health External Planned Provider: [facility] DCP follow-up note: CM RECEIVED DISCHARGE AND HOME HEALTH ORDER. CM REVIEWED CHART, INDICATES THAT PT NEEDS OVERNIGHT PULSE OXIMETRY TESTING. ORDER OBTAINED. CM MET WITH PT IN ROOM, DISCUSSED DISCHARGE NEEDS. PT IN AGREEMENT WITH DISCHARGE HOME AND [facility]. PT STATES SHE DID NOT QUALIFY FOR OXYGEN TODAY. SHE WOULD LIKE THE OVERNIGHT PULSE OX TEST FROM [facility]. CHOICE SIGNED. PT DENIES FURTHER NEEDS, DAUGHTER HERE TO TRANSPORT PT HOME. CM CALLED [facility], , SPOKE TO JOSE MARIA WHO WILL FAX ORDERS FOR SIGNATURE TO DR. IRENE AND ARRANGE OVERNIGHT PULSE OXIMETRY WITH PT AT HOME. CM CALLED [facility],[phone], PROVIDED REFERRAL TO [facility]. CM FAXED REFERRAL TO [facility]. CONSTRUCTION IRONWORKER NURSE NOTIFIED. Chris Villalba, CASE MANAGEMENT DCP- Discharge Planning Updated by [id number]: Chris Villalba on 08/22/19 3:[address] Patient Name: RICHARD NGO Admission Status: ER Accout number: [id number] Admission Date: 08-17-2019 : 1940 Admission Diagnosis: Attending: VINNIE IRENE Current LOS: 5 Anticipated DC Date: 08-23-2019 Planned Disposition: Home with Home Health Primary Insurance: MEDICARE A & B PLANNED EXTERNAL PROVIDER: [facility] Discharge Planning Comments: CM MET WITH PT IN ROOM TO DISCUSS DISCHARGE PLANNING AND NEEDS. PT REPORTS LIVING AT HOME INDEPENDENTLY AND ALONE. PT HAS NO MEDICAL EQUIPMENT AND NO OUTSIDE SERVICES ASSISTING IN THE HOME. CM DISCUSSED AVAILABILITY OF HOME HEALTH, REHAB SERVICES AND MEDICAL EQUIPMENT. PT WOULD LIKE HOME HEALTH FOR DISCHARGE HOME. CM OFFERED PROVIDER LISTING, PT STATES SHE WANTS [facility] SHE RECEIVED [facility] C[facility] THE LAST TIME. CHOICE SIGNED. PT REPORTS HER DAUGHTER WILL PICK HER UP FOR DISCHARGE HOME. IMPORTANT MESSAGE FROM MEDICARE PROVIDED AND EXPLAINED. CM TO ARRANGE HOME HEALTH FOR DISCHARGE HOME WITH PHYSICIAN ORDER AND AGREEMENT. CM TO FOLLOW AND ASSIST NEEDED. Rn Psych: Chris Villalba DCPIA - Discharge Planning Initial Assessment Updated by [id number]: Chris Villalba on 08/22/19 4:00 pm * Is the patient Alert and Oriented? Yes * How many steps to enter\exit or inside your home? NONE * PCP DR. IRENE * Pharmacy [facility] * Preadmission Environment Home Alone * ADLs Independent * Equipment None * Other Equipment NO MEDICAL EQUIPMENT PROVIDER PREFERENCE * List name and contact numbers for known caregivers / representatives who currently or will assist patient after discharge: THOMAS NGO DTR, * Verbal permission to speak to the caregivers and representatives has been obtained from the patient. N/A * Community resources currently utilized None * Please name any agencies selected above. NONE * Additional services required to return to the preadmission environment? Yes * Can the patient safely return to the preadmission environment? Yes * Has this patient been hospitalized within the prior 30 days at any hospital? No External Providers External Provider: [facility] Next Contact Date: 08/24/2019 Service Request Date: Service Type: Resolution: Reviewer: Comments: External Provider: [facility] Next Contact Date: 08/24/2019 Service Request Date: Service Type: Resolution: Reviewer: Comments: Coverage Notice Reviewer: [id number] - Chris Villalba Notice Issued Date-Time: 08/22/2019 15:25 Notice Type: IM Discharge Notice Notice Delivered To: Patient Relationship to Patient: Set Up Mold Technician Name: Delivery Method: HAND - Hand Delivered Nakia Days: Prior Verbal Notification: Recipient Understood Notice: Yes Recipient Signature: Yes Med Rec Note Co-signed by Attending: Coverage Notice Comment: Reviewer: KAVON Villalba Notice Issued Date-Time: 08/24/2019 14:25 Notice Type: Patient Choice Letter Notice Delivered To: Patient Relationship to Patient: Set Up Mold Technician Name: Delivery Method: HAND - Hand Delivered Nakia Days: Prior Verbal Notification: Recipient Understood Notice: Yes Recipient Signature: Yes Med Rec Note Co-signed by Attending: Coverage Notice Comment: Reviewer: KAVON Villalba Notice Issued Date-Time: 08/22/2019 15:25 Notice Type: Patient Choice Letter Notice Delivered To: Patient Relationship to Patient: Set Up Mold Technician Name: Delivery Method: HAND - Hand Delivered Nakia Days: Prior Verbal Notification: Recipient Understood Notice: Yes Recipient Signature: Yes Med Rec Note Co-signed by Attending: Coverage Notice Comment: [facility] Last DP export: 08/22/19 3:04 p Patient Name: RICHARD NGO Page [id number] at 1455 All edits/amendments must be made on the electronic document DICTATION DATE: 08/24/191453 PARTS PROFESSIONAL: LESIA 08/24/19 1454 RPT#: [id number] [place] DATE: STATUS: ADM IN [facility] [address] [place] [address] END OF REPORT
--- NOTE | 2019-08-24 15:39 | NUR ---
REVIEWED DISCHARGE INSTRUCTIONS WITH PT STATES UNDERSTANDING COPY GIVEN PT DISCHARGED VIA W/C IN STABLE CONDITION WITH ALL PERSONAL BELONGINGS
== END 2019-08-24 15:39 | disposition home health service (06) | DRG 202 ==
LOC: D.ER 08:58 → D.M2 12:20
PROVIDERS: Emergency Medicine; ADMIT Family Medicine; ATTEND Family Medicine
DX: J20.9 Acute bronchitis, unspecified (principal); J18.9 Pneumonia, unspecified organism; I24.8 Other forms of acute ischemic heart disease; K21.9 Gastro-esophageal reflux disease without esophagitis; J43.9 Emphysema, unspecified; E03.9 Hypothyroidism, unspecified; E11.9 Type 2 diabetes mellitus without complications; I10 Essential (primary) hypertension; E78.5 Hyperlipidemia, unspecified; R00.0 Tachycardia, unspecified; I25.10 Atherosclerotic heart disease of native coronary artery without angina pectoris; F41.9 Anxiety disorder, unspecified; G47.00 Insomnia, unspecified; T38.0X5A Adverse effect of glucocorticoids and synthetic analogues, initial encounter; Z86.73 Personal history of transient ischemic attack (TIA), and cerebral infarction without residual deficits; Z87.891 Personal history of nicotine dependence